=== PATIENT | female | born 1955 | race Caucasian/White ===

== ENCOUNTER → 2017-02-02 | Outpatient (CLI) | payer BC ==
--- NOTE | 2017-02-02 12:51 | RADIOLOGY REPORT (SQ) ---
EXAM DESCRIPTION: CT CHEST WITHOUT COMPLETED DATE/TIME: 02/02/2017 10:46 am REASON FOR STUDY: PULMONARY INFILTRATE R91.8 OTHER NONSPECIFIC ABNORMAL FINDING OF LUNG FIELD COMPARISON: 06/06/2015 TECHNIQUE: CT scan performed of the chest without intravenous contrast. Images reviewed with lung, soft tissue and bone windows. Reconstructed coronal and sagittal MPR images reviewed. All images st ored on PACS. All CT scanners at this facility use dose modulation, iterative reconstruction, and/or weight based d osing when appropriate to reduce radiation dose to as low as reasonably achievable (ALARA). [facility]: Dose Right [facility]: CareDose [facility]: Dose Right [facility]: Teradose 4D [facility]: [employer] RADIATION DOSE: 10.13 mGy. LIMITATIONS: No technical limitations. FINDINGS: LUNGS AND PLEURA: There are moderate centrilobular emphysematous changes predominantly in the right upper lobe. There is no pulmonary infiltrate or pleural effusion. No masses appreciated. The small nodule noted on the study from 2014 is not present. HILAR AND MEDIASTINAL STRUCTURES: There are some small calcified right hilar and subcarinal nodes. T here are scattered other mediastinal nodes that show no change. HEART AND VASCULAR STRUCTURES: No aneurysm. No pericardial effusion. UPPER ABDOMEN: No significant findings. Limited exam. THYROID AND OTHER SOFT TISSUES: No masses. No adenopathy. BONES: No significant finding. HARDWARE: None in the chest. OTHER: No other significant findings. IMPRESSION: There is mild pulmonary emphysema with no acute abnormality. TECHNICAL DOCUMENTATION: JOB ID: [id number] Quality ID # [id number]: Final reports with documentation of one or more dose reduction techniques (e.g., Au tomated exposure control, adjustment of the mA and/or kV according to patient size, use of iterative reconstruction technique) 2010 [employer]- All Rights Reserved
== END ==
LOC: RAD 10:32
PROVIDERS: ATTEND Internal Medicine Critical Care Medicine
DX: R91.8 Other nonspecific abnormal finding of lung field (principal)
CPT/HCPCS: 71250

== ENCOUNTER 2018-10-02 14:20 | Inpatient (IN) | payer BC ==
[2018-10-02] MEDS ORDERED: NORMAL SALINE 1000 ML 1,000 ML IV ONE (15:18)
[2018-10-02] MEDS ORDERED: ONDANSETRON HCL INJ/PF 4 MG/2 ML SDV IV ONE (15:18)
[2018-10-02] MEDS ORDERED: MORPHINE SULFATE 10 MG/ML INJ IV ONE (15:18)
--- NOTE | 2018-10-02 15:20 | ER Document Report ---
ED Medical Screen (RME) - General Chief Complaint: Flank Pain Stated Complaint: BACK PAIN/DIFFICULTY BREATHING Time Seen by Provider: 10/02/18 15:13 Primary Care Provider: MASOOD COLON PA [Primary Care Provider] - Follow up as needed Mode of Arrival: Ambulatory Information source: Patient Notes: 63-year-old female presents emergency department complaints of right flank pain that radiates into the right lower quadrant. No alleviating or exacerbating factors. No prior history of kidney stones. Has had an appendectomy. Patient is having associated nausea, vomiting, dysuria and chills. Denies any fever, diarrhea, constipation. I have greeted and performed a rapid initial assessment of this patient. A comprehensive ED assessment and evaluation of the patient, analysis of test results and completion of the medical decision making process will be conducted by additional ED providers. PHYSICAL EXAMINATION: GENERAL: Uncomfortable. HEAD: Atraumatic, normocephalic. EYES: Pupils equal round extraocular movements intact, conjunctiva are normal. ENT: Nares patent NECK: Normal range of motion LUNGS: No respiratory distress Musculoskeletal: Normal range of motion. R CVA tenderness. NEUROLOGICAL: Normal speech, PSYCH: Normal mood, normal affect. SKIN: Warm, Dry, normal turgor, no rashes or lesions noted. TRAVEL OUTSIDE OF THE [place] IN LAST 30 DAYS: No - Related Data Allergies/Adverse Reactions: brompheniramine maleate [From [employer]] Allergy (Severe, Verified 10/02/18 1 5:10) Mood change "higher than kite" x 2 days dextromethorphan HBr [From [employer]] Allergy (Severe, Verified 10/02/18 15:10) Mood change "higher than kite" x 2 days phenylpropanolamine HCl [From [employer]] Allergy (Severe, Verified 10/02/18 15:10) Mood change "higher than kite" x 2 days pseudoephedrine HCl [From [employer]] Allergy (Severe, Verified 10/02/18 15:10) Mood change "higher than kite" x 2 days Past Medical History - Social History Chew tobacco use (# tins/day): No Frequency of alcohol use: None Drug Abuse: None - Past Medical History Cardiac Medical History: Denies: Hx Coronary Artery Disease, Hx Heart Attack, Hx Hypertension Pulmonary Medical History: Reports: Hx Asthma, Hx Bronchitis, Hx COPD - Recently dx Denies: Hx Pneumonia Neurological Medical History: Denies: Hx Cerebrovascular Accident, Hx Seizures Endocrine Medical History: Reports: Hx Diabetes Mellitus Type 2 Renal/ Medical History: Denies: Hx Peritoneal Dialysis GI Medical History: Reports: Hx Gastroesophageal Reflux Disease, Hx Ulcer - Currently prepyloric ulcer on endoscopy 3 years ago Musculoskeltal Medical History: Reports Hx Arthritis - Hips, lower back Past Surgical History: Reports: Hx Appendectomy, Hx Pituitary Surgery - Pituitary adenoma removed in 2009, Hx Tonsillectomy - Immunizations Hx Diphtheria, Pertussis, Tetanus Vaccination: Yes Physical Exam - Vital signs Vitals: Temp Pulse Resp BP Pulse Ox 97.4 F 83 20 188/77 H 99 10/02/18 14:27 10/02/18 14:27 10/02/18 14:27 10/02/18 14:27 10/02/18 14:27 Course - Vital Signs Vital signs: Temp Pulse Resp BP Pulse Ox 97.4 F 83 20 188/77 H 99 10/02/18 14:27 10/02/18 14:27 10/02/18 14:27 10/02/18 14:27 10/02/18 14:27 Doctor's Discharge - Discharge Referrals: MASOOD COLON PA [Primary Care Provider] - Follow up as needed
[2018-10-02 15:52] LABS: ABSOLUTE BASOPHILS # (AUTO) 0.1 10^3/uL (0.0-0.2); ABSOLUTE EOSINOPHILS # (AUTO) 0.1 10^3/uL (0.0-0.6); ABSOLUTE LYMPHOCYTES (AUTO) 2.6 10^3/uL (0.5-4.7); ABSOLUTE MONOCYTES (AUTO) 0.6 10^3/uL (0.1-1.4); BASOPHILS % (AUTO) 0.7 % (0-2); EOSINOPHILS % (AUTO) 0.8 % (0-6); HEMATOCRIT 48.1 % (36.0-47.0); HEMOGLOBIN 16.4 g/dL (12.0-15.5); LYMPHOCYTES % (AUTO) 16.9 % (13-45); MEAN CORPUSCULAR VOLUME 85 fl (80-97); PLATELET COUNT 252 10^3/uL (150-450); RED BLOOD COUNT 5.65 10^6/uL (3.72-5.28); RED CELL DISTRIBUTION WIDTH 15.9 % (11.5-14.0); SEGMENTED NEUTROPHILS % (AUTO) 77.6 % (42-78); TOTAL CELLS COUNTED % (AUTO) 100 %; WHITE BLOOD COUNT 15.4 10^3/uL (4.0-10.5)
[2018-10-02] MEDS ORDERED: HYDROMORPHONE HCL INJ/PF 2 MG/ML AMPULE IV ONE (16:16)
[2018-10-02] MEDS ORDERED: KETOROLAC TROMETHAMINE INJ/PF 30 MG/1 ML SDV IV ONE (16:16)
[2018-10-02 16:17] LABS: APPEARANCE,URINE SLIGHTLY-CLOUDY; BILIRUBIN,URINE NEGATIVE (NEGATIVE); COLOR,URINE YELLOW; GLUCOSE, URINE NEGATIVE (NEGATIVE); KETONES,URINE NEGATIVE (NEGATIVE); LEUKOCYTE ESTERASE,URINE LARGE (NEGATIVE); NITRITE,URINE POSITIVE (NEGATIVE); PROTEIN,URINE NEGATIVE (NEGATIVE); URINE SPECIFIC GRAVITY 1.013
[2018-10-02 16:20] LABS: ALANINE AMINOTRANSFERASE 27 U/L (9-52); ALBUMIN 4.8 g/dL (3.5-5.0); ALKALINE PHOSPHATASE 173 U/L (38-126); ANION GAP 11 (5-19); ASPARTATE AMINO TRANSFERASE 18 U/L (14-36); BILIRUBIN,DIRECT 0.3 mg/dL (0.0-0.4); BILIRUBIN,TOTAL 0.5 mg/dL (0.2-1.3); BLOOD UREA NITROGEN 14 mg/dL (7-20); CARBON DIOXIDE 28 mmol/L (22-30); CHLORIDE 101 mmol/L (98-107); GLUCOSE 163 mg/dL (75-110); POTASSIUM 4.4 mmol/L (3.6-5.0); SODIUM 140.2 mmol/L (137-145); TOTAL PROTEIN 8.1 g/dL (6.3-8.2)
--- NOTE | 2018-10-02 17:26 | RADIOLOGY REPORT (SQ) ---
EXAM DESCRIPTION: CT ABD/PELVIS WITH IV ONLY COMPLETED DATE/TIME: 10/02/2018 5:04 pm REASON FOR STUDY: R flank pain COMPARISON: None. TECHNIQUE: CT scan of the abdomen and pelvis performed using helical scanning technique with dynamic intravenous contrast injection. No oral contrast. Images reviewed with lung, soft tissue, and bone w indows. Reconstructed coronal and sagittal MPR images reviewed. Delayed images for evaluation of the urinary system also acquired. All images stored on PACS. All CT scanners at this facility use dose modulation, iterative reconstruction, and/or weight based d osing when appropriate to reduce radiation dose to as low as reasonably achievable (ALARA). [facility]: Dose Right [facility]: CareDose [facility]: Dose Right [facility]: Teradose 4D [facility]: [employer] CONTRAST TYPE AND DOSE: contrast/concentration: Isovue 350.00 mg/ml; Total Contrast Delivered: 99.0 ml; Total Saline Delivered: 72.0 ml RENAL FUNCTION: GFR > 60. RADIATION DOSE: CT Rad equipment meets quality standard of care and radiation dose reduction techniq ues were employed. CTDIvol: 13.0 - 18.4 mGy. DLP: 1606 mGy-cm.. LIMITATIONS: None. FINDINGS: LOWER CHEST: Minimal basilar subsegmental atelectasis. LIVER: Normal size. No enhancing masses. No dilated ducts. SPLEEN: Normal size. No focal lesions. PANCREAS: No masses identified. No significant calcifications. No adjacent inflammation or peripancre atic fluid collections. Pancreatic duct not dilated. GALLBLADDER: No calcified stones. No inflammatory changes to suggest cholecystitis. ADRENAL GLANDS: No significant masses. RIGHT KIDNEY AND URETER: Small cysts identified. No solid masses identified. 4 mm calcified stone in the proximal right ureter with mild hydronephrosis-hydroureter. LEFT KIDNEY AND URETER: No cysts identified. No solid masses identified. 4 mm lower pole calcified s tone. No hydronephrosis or hydroureter. AORTA AND VESSELS: No aneurysm. No dissection. Renal arteries, SMA, celiac without significant stenos is. RETROPERITONEUM: No bulky retroperitoneal adenopathy. BOWEL AND PERITONEAL CAVITY: No obstruction or inflammatory changes. No free fluid. APPENDIX: Normal. PELVIS: No mass. No free fluid. Unremarkable bladder. ABDOMINAL WALL: No masses. No hernias. BONES: No acute findings. OTHER: No other significant finding. IMPRESSION: 4 mm calcified stone in the proximal right ureter with mild hydronephrosis-hydroureter. TECHNICAL DOCUMENTATION: JOB ID: [id number] Quality ID # [id number]: Final reports with documentation of one or more dose reduction techniques (e.g., Au tomated exposure control, adjustment of the mA and/or kV according to patient size, use of iterative reconstruction technique) 2010 [employer]- All Rights Reserved Reading location - IP/workstation name: [email or web address]
[2018-10-02] MEDS ORDERED: CEFTRIAXONE 1 GM/D5W RTU 1 GM/50 ML RTUPB IV ONE (17:46)
[2018-10-02] MEDS ORDERED: TAMSULOSIN HCL 0.4 MG CAP.SR.24H PO ONE (18:57)
--- NOTE | 2018-10-02 20:46 | ER Document Report ---
Entered by CHELSI DENIS SCRIBE 10/02/18 1146 Acting as scribe for:MONICA PORTILLO DO ED General - General Chief Complaint: Flank Pain Stated Complaint: BACK PAIN/DIFFICULTY BREATHING Time Seen by Provider: 10/02/18 15:13 Mode of Arrival: Ambulatory Information source: Patient Notes: Patient is a 63-year-old female with COPD, and type 2 diabetes presents to the emergency department complaining of right flank pain onset this morning. Patient states she noticed the pain when she woke up this morning but attributed it possibly sleeping incorrectly during the night. She states the pain has significantly worsened throughout the day and radiates into the right side of her lower abdomen. She states the pain is exacerbated with urinating. She denies a history of kidney stones but reports a history of multiple kidney infections as a child. Patient states she has had one vomiting episode upon arrival to the emergency department. Patient's PCP is DANIELA Gonzalez. TRAVEL OUTSIDE OF THE [place] IN LAST 30 DAYS: No - Related Data Allergies/Adverse Reactions: brompheniramine maleate [From [employer]] Allergy (Severe, Verified 10/02/18 15:10) Mood change "higher than kite" x 2 days dextromethorphan HBr [From [employer]] Allergy (Severe, Verified 10/02/18 15:10) Mood change "higher than kite" x 2 days phenylpropanolamine HCl [From [employer]] Allergy (Severe, Verified 10/02/18 15:10) Mood change "higher than kite" x 2 days pseudoephedrine HCl [From [employer]] Allergy (Severe, Verified 10/02/18 15:10) Mood change "higher than kite" x 2 days Past Medical History - General Information source: Patient - Social History Smoking Status: Current Every Day Smoker Chew tobacco use (# tins/day): No Frequency of alcohol use: None Drug Abuse: None Family History: CAD, Malignancy Patient has suicidal ideation: No Patient has homicidal ideation: No Pulmonary Medical History: Reports: Hx Asthma, Hx Bronchitis, Hx COPD - Recently dx Endocrine Medical History: Reports: Hx Diabetes Mellitus Type 2 GI Medical History: Reports: Hx Gastroesophageal Reflux Disease, Hx Ulcer - Currently prepyloric ulcer on endoscopy 3 years ago Musculoskeletal Medical History: Reports Hx Arthritis - Hips, lower back Past Surgical History: Reports: Hx Appendectomy, Hx Pituitary Surgery - Pituitary adenoma removed in 2010, Hx Tonsillectomy - Immunizations Hx Diphtheria, Pertussis, Tetanus Vaccination: Yes Review of Systems - Review of Systems Constitutional: No symptoms reported EENT: No symptoms reported Cardiovascular: No symptoms reported Respiratory: No symptoms reported Gastrointestinal: See HPI, Abdominal pain, Vomiting Genitourinary: See HPI, Flank pain Female Genitourinary: No symptoms reported Musculoskeletal: No symptoms reported Skin: No symptoms reported Hematologic/Lymphatic: No symptoms reported Neurological/Psychological: No symptoms reported -: Yes All other systems reviewed and negative Physical Exam - Vital signs Vitals: Temp Pulse Resp BP Pulse Ox 97.4 F 83 20 188/77 H 99 10/02/18 14:27 10/02/18 14:27 10/02/18 14:27 10/02/18 14:27 10/02/18 14:27 - Notes Notes: GENERAL: Alert, appears uncomfortable.. No acute distress. HEAD: Normocephalic, atraumatic. EYES: Pupils equal, round, and reactive to light. Extraocular movements intact. ENT: Oral mucosa moist, tongue midline. NECK: Full range of motion. Supple. Trachea midline. LUNGS: Crackles at the bases bilaterally.,No respiratory distress. HEART: Regular rate and rhythm. No murmurs, gallops, or rubs. ABDOMEN: Soft, non-tender. Non-distended. Bowel sounds present in all 4 quadrants. EXTREMITIES: Moves all 4 extremities spontaneously. 2/4 radial and dorsalis pedis pulses bilaterally. No edema. NEUROLOGICAL: Alert and oriented x3. Normal speech. PSYCH: Normal affect, normal mood. SKIN: Warm, dry, normal turgor. No rashes or lesions noted. BACK: Right CVA tenderness to percussion. Course - Re-evaluation Re-evalutation: 10/02/18 20:44 CBC shows leukocytosis of 15.4, some hemoconcentration with hemoglobin 16.4, chemistries grossly unremarkable with the exception of a mildly elevated glucose of 163, urinalysis shows large blood, large leukocyte esterase, positive nitrites, 50 WBCs, 39 RBCs and 3+ bacteria. This is been sent for culture and treated with Rocephin. CT scan of the abdomen and pelvis shows a 4 mm calcified stone in the proximal right ureter with mild hydronephrosis and hydroureter. Given the fact that the patient has an infected, mildly obstructing stone I did consult urology at [facility], discussed the patient with Siomara Beltran the PA for the urology service. She stated that as the patient has no signs of sepsis, has not been febrile, hypotensive, tachycardic and is no longer in any pain that this patient could be watched here with IV antibiotics, they would not stent this patient emergently at this time. If at any point she develops signs of sepsis such as hypotension, fever or tachycardia she should be transferred there emergently to go directly to the OR. I then discussed the patient with Dr. Perdue who agrees to accept the patient to his service. - Vital Signs Vital signs: Temp Pulse Resp BP Pulse Ox 98.2 F 88 20 135/69 H 93 10/02/18 21:01 10/02/18 16:20 10/02/18 22:01 10/02/18 22:01 10/02/18 22:01 - Laboratory Result Diagrams: 10/02/18 15:30 10/02/18 15:30 Laboratory results interpreted by me: 10/02/18 10/02/18 10/02/18 15:25 15:30 15:30 WBC 15.4 H RBC 5.65 H Hgb 16.4 H Hct 48.1 H RDW 15.9 H Absolute Neutrophils 12.0 H Glucose 163 H Alkaline Phosphatase 173 H Urine Blood LARGE H Urine Nitrite POSITIVE H Urine Urobilinogen 2.0 H Ur Leukocyte Esterase LARGE H Discharge - Discharge Clinical Impression: Ureteral stone with hydronephrosis, Pyelonephritis, acute Condition: Fair Disposition: ADMITTED INPATIENT Admitting Provider: Darci Perdue Unit Admitted: Telemetry Scribe Attestation: 10/02/18 23:59 I personally performed the services described in the documentation, reviewed and edited the documentation which was dictated to the scribe in my presence, and it accurately records my words and actions. I personally performed the services described in the documentation, reviewed and edited the documentation which was dictated to the scribe in my presence, and it accurately records my words and actions.
[2018-10-02] MEDS ORDERED: ONDANSETRON HCL INJ/PF 4 MG/2 ML SDV IV PRN (22:33)
[2018-10-02] MEDS ORDERED: MAGNESIUM HYDROXIDE SUSP 30 ML UDCUP PO PRN (22:33)
[2018-10-02] MEDS ORDERED: MAG HYDROX/AL HYDROX/SIMETH SUSP 30 ML UDCUP PO PRN (22:33)
[2018-10-02] MEDS ORDERED: ONDANSETRON 4 MG TAB.RAPDIS PO PRN (22:33)
[2018-10-02] MEDS ORDERED: MORPHINE SULFATE 10 MG/ML INJ IV PRN ×3 (22:44)
[2018-10-02] MEDS ORDERED: INSULIN REG, HUMAN 100 UNIT/ML 3 ML VIAL (PYX) SUBCUT PRN (22:48)
[2018-10-02] MEDS ORDERED: DEXTROSE 50%-WATER 25 GM/50 ML DISP.SYRIN IV PRN ×2 (22:48)
[2018-10-02] MEDS ORDERED: GLUCAGON,HUMAN RECOMB 1 MG INJ IM PRN (22:48)
[2018-10-02] MEDS ORDERED: DEXTROSE 40% GEL 15 GM TUBE PO PRN ×2 (22:48)
[2018-10-02] MEDS ORDERED: MEROPENEM 1 GM VIAL IV PRN ×2 (23:30→23:31)
[2018-10-03] MEDS ORDERED: ALBUTEROL SULFATE 0.083% NEB 2.5 MG/3 ML AMPUL NEB PRN (01:11)
--- NOTE | 2018-10-03 01:33 | PDOC H&P ---
History of Present Illness Admission Date/PCP: 10/02/18 20:51 CARROLL LIANG PA-C Patient complains of: Flank pain History of Present Illness: KAREEM RIOJAS is a 63 year old female who presented to the emergency room with extremely severe right flank pain of 4 hours duration. Patient admits that she began having some mild discomfort in her right flank on the evening prior to admission and this was still present on the morning of admission but she then suddenly developed increasing flank pain and over up course of about 4 hours it became unbearably severe. The pain began in the right posterior costovertebral angle area and gradually expanded in the area around her right side down all the way into her right groin. She describes the pain is a severe cramping pressure of unbearable intensity. The pain is increased with any movement and the active trying to urinate. She has not identified any ameliorating factors for the pain. She denies prior similar symptoms. Pain is been associated with nausea and vomiting as well as subjective chills without fever. In the emergency room she was noted to be in severe discomfort and was found to have a 4 millimeter ureterolith in her right distal ureter. Urology at [facility] was contacted and agrees that they will take the patient immediately if she develops a fever, hypotension or any evidence of sepsis with the intention of taking the patient directly to the operating room and placing a stent. Otherwise urology recommends supportive care with IV fluids, antiemetics, antibi otics and pain management. Patient is thus admitted to the hospital for further evaluation and treatment. Past Medical History Cardiac Medical History: Denies: Coronary Artery Disease, Myocardial Infarction, Hypertension Pulmonary Medical History: Reports: Asthma, Bronchitis, Chronic Obstructive Pulmonary Disease (COPD) - Recently dx Denies: Pneumonia, Respiratory Failure, Tuberculosis EENT Medical History: Denies: Cataracts, Nose - Epistaxis Neurological Medical History: Denies: Multiple Sclerosis, Seizures Endocrine Medical History: Reports: Diabetes Mellitus Type 2, Other - Pituitary tumor Denies: Hyperthyroidism, Hypothyroidism Renal/ Medical History: Reports: Other - Multiple urinary tract infections as a child Denies: Chronic Kidney Disease, Nephrolithiasis Malignancy Medical History: Reports: None GI Medical History: Reports: Gastroesophageal Reflux Disease Denies: Cirrhosis, Crohn's Disease, Hepatitis, Ulcerative Colitis Musculoskeltal Medical History: Reports: Arthritis - Hips, lower back Denies: Gout Skin Medical History: Denies: Eczema, Psoriasis Psychiatric Medical History: Reports: Tobacco Dependency Denies: Alcohol Dependency, Substance Abuse Traumatic Medical History: Reports: None Hematology: Denies: Anemia, Bleeding Tendencies Infectious Medical History: Reports: None Past Surgical History Past Surgical History: Reports: Appendectomy, Tonsillectomy, Tubal Ligation, Other - Excision of benign pituitary tumor Social History Information Source: Patient Lives with: Spouse/Significant other Smoking Status: Current Every Day Smoker Frequency of Alcohol Use: None Hx Recreational Drug Use: No Drugs: None Hx Prescription Drug Abuse: No - Advance Directive Resuscitation Status: Full Code Surrogate healthcare decision maker:: Her daughter Taisha Family History Family History: CAD, DM Parental Family History Reviewed: Yes Children Family History Reviewed: No Sibling(s) Family History Reviewed.: Yes Medication/Allergy Home Medications: Hydrocodone/Acetaminophen [Vicodin 5-300 mg Tablet] 1 each PO ASDIR PRN #15 tablet 07/30/13 Ondansetron [Zofran Odt 4 mg Tablet] 1 - 2 tab PO Q4H #10 tab.rapdis 07/30/13 Albuterol Sulfate [Albuterol Sulfate Hfa] 2 puff IH Q4H PRN 10/12/13 Calcium Carbonate [Tums Smoothies] 900 - 1,200 mg PO TID PRN 10/12/13 Metformin HCl [Glucophage 500 mg Tablet] 500 mg PO BID 10/12/13 Omeprazole 20 mg PO BID 10/12/13 Ranitidine HCl 150 mg PO BID 10/12/13 [address] [place] [Spiriva Handihaler 18 mcg/dose (30 Dose)] 1 puff IH DAILY 10/12/13 Vitamin D 50,000 mg PO SA 10/12/13 Allergies/Adverse Reactions: brompheniramine maleate [From Dimetapp] Allergy (Severe, Verified 10/02/18 15:10) Mood change "higher than kite" x 2 days dextromethorphan HBr [From Dimetapp] Allergy (Severe, Verified 10/02/18 15:10) Mood change "higher than kite" x 2 days phenylpropanolamine HCl [From Dimetapp] Allergy (Severe, Verified 10/02/18 15:10) Mood change "higher than kite" x 2 days pseudoephedrine HCl [From Dimetapp] Allergy (Severe, Verified 10/02/18 15:10) Mood change "higher than kite" x 2 days Review of Systems Constitutional: ABSENT: chills, fever(s) Eyes: ABSENT: visual disturbances, other - Eye pain Ears: ABSENT: hearing changes, other - Ear pain Nose, Mouth, and Throat: ABSENT: mouth pain, sore throat Cardiovascular: ABSENT: chest pain, palpitations Respiratory: ABSENT: cough, dyspnea Gastrointestinal: PRESENT: as per HPI, abdominal pain - Right flank pain, nausea, vomiting. ABSENT: constipation, diarrhea Genitourinary: ABSENT: dysuria, hematuria Musculoskeletal: PRESENT: back pain - Chronic arthritis, other - Arthritis in hips. ABSENT: joint swelling Integumentary: ABSENT: pruritus, rash Neurological: ABSENT: confusion, convulsions, memory loss Psychiatric: ABSENT: anxiety, depression Endocrine: ABSENT: cold intolerance, heat intolerance Hematologic/Lymphatic: ABSENT: easy bleeding, easy bruising Physical Exam Vital Signs: Temp Pulse Resp BP Pulse Ox 98.2 F 88 20 135/69 H 93 10/02/18 21:01 10/02/18 16:20 10/02/18 22:01 10/02/18 22:01 10/02/18 22:01 Intake & Output 09/30/18 10/01/18 10/02/18 23:59 23:59 23:59 Intake Total 1000 Balance 1000 Weight 87.5 kg General appearance: PRESENT: no acute distress, cooperative, obese Head exam: PRESENT: atraumatic, normocephalic Eye exam: PRESENT: conjunctiva pink, EOMI. ABSENT: scleral icterus Ear exam: PRESENT: normal external ear exam. ABSENT: bleeding, drainage Mouth exam: PRESENT: dry mucosa, neck supple Neck exam: ABSENT: thyromegaly, tracheal deviation Respiratory exam: PRESENT: clear to auscultation charles, symmetrical, unlabored Cardiovascular exam: PRESENT: RRR. ABSENT: clicks, gallop, rubs Pulses: PRESENT: normal radial pulses, normal dorsalis pedis pul Vascular exam: PRESENT: normal capillary refill. ABSENT: pallor GI/Abdominal exam: PRESENT: normal bowel sounds, soft, tenderness - Tenderness noted to palpation throughout the right flank (including groin and right costovertebral angle). Rectal exam: PRESENT: deferred Extremities exam: ABSENT: joint swelling, pedal edema Musculoskeletal exam: ABSENT: deformity, dislocation Neurological exam: PRESENT: alert, oriented to person, oriented to place, oriented to time, oriented to situation, CN II-XII grossly intact. ABSENT: motor sensory deficit Psychiatric exam: PRESENT: appropriate affect, normal mood Skin exam: PRESENT: dry, intact, warm. ABSENT: jaundice, rash, urticaria Results Laboratory Results: 10/02/18 15:30 10/02/18 15:30 10/02/18 10/02/18 10/02/18 15:25 15:30 15:30 WBC 15.4 H RBC 5.65 H Hgb 16.4 H Hct 48.1 H MCV 85 MCH 29.0 MCHC 34.0 RDW 15.9 H Plt Count 252 Seg Neutrophils % 77.6 Lymphocytes % 16.9 Monocytes % 4.0 Eosinophils % 0.8 Basophils % 0.7 Absolute Neutrophils 12.0 H Absolute Lymphocytes 2.6 Absolute Monocytes 0.6 Absolute Eosinophils 0.1 Absolute Basophils 0.1 Sodium 140.2 Potassium 4.4 Chloride 101 Carbon Dioxide 28 Anion Gap 11 BUN 14 Creatinine 0.86 Est GFR ( Amer) > 60 Est GFR (Non-Af Amer) > 60 Glucose 163 H Calcium 10.0 Total Bilirubin 0.5 AST 18 ALT 27 Alkaline Phosphatase 173 H Total Protein 8.1 Albumin 4.8 Urine Color YELLOW Urine Appearance SLIGHTLY-CLOUDY Urine pH 6.0 Ur Specific [place] 1.013 Urine Protein NEGATIVE Urine Glucose (UA) NEGATIVE Urine Ketones NEGATIVE Urine Blood LARGE H Urine Nitrite POSITIVE H Ur Leukocyte Esterase LARGE H Urine WBC (Auto) 50 Urine RBC (Auto) 39 Impressions: Abdomen/Pelvis CT 10/02/18 15:17 IMPRESSION: 4 mm calcified stone in the proximal right ureter with mild hydronephrosis-hydroureter. Assessment & Plan - Diagnosis (1) Right nephrolithiasis Is this a current diagnosis for this admission?: Yes Plan: Patient will be admitted for IV fluids and pain control. Should she develop fever or signs of sepsis or increasing obstruction she will be transferred to [facility] were the urologist substation manager has already agreed to accept her directly and take her to surgery. (2) Pyelonephritis, acute Is this a current diagnosis for this admission?: Yes Plan: Patient be treated with broad-spectrum antibiotics while awaiting the urine culture and blood culture results. Pain will be managed utilizing a sliding dose morphine 3-7.5 mg IV every 2 hours as needed for pain. (3) Diabetes mellitus type 2 in obese Is this a current diagnosis for this admission?: Yes Plan: Patient will be maintained on her usual diabetic medications. Hemoglobin A1c will be obtained to evaluate efficacy of therapy and sliding scale insulin will be instituted before meals and at bedtime to cover hyperglycemia during her hospital stay. (4) GERD (gastroesophageal reflux disease) Qualifiers: Esophagitis presence: with esophagitis Qualified Code(s): K21.0 - Gastro- esophageal reflux disease with esophagitis Is this a current diagnosis for this admission?: Yes Plan: Patient will be placed on a gastroesophageal reflux regimen utilizing Reglan, famotidine and sucralfate. - Time Time Spent: 30 to 50 Minutes Critical Time spent with patient: Less than 15 minutes Smoking Cessation Education: 3 to 10 minutes Medications reviewed and adjusted accordingly: Yes - Inpatient Certification Based on my medical assessment, after consideration of the patient's gaurav rbidities, presenting symptoms, or acuity I expect that the services needed warrant INPATIENT care.: Yes I certify that my determination is in accordance with my understanding of Medicare's requirements for reasonable and necessary INPATIENT services [42 CFR 412.3e].: Yes Medical Necessity: Need Close Monitoring Due to Risk of Patient Decompensation, Need For IV Fluids, Need for Pain Control, Need for IV Antibiotics, Risk of Complication if Not Cared For in Hospital
[2018-10-03] MEDS ORDERED: MEROPENEM 1 GM in NORMAL SALINE 50 ML IV SCH ×2 (02:00→06:00)
[2018-10-03] MEDS ORDERED: MEROPENEM 1 GM VIAL ONE (02:25)
[2018-10-03 05:06] LABS: ABSOLUTE BASOPHILS # (AUTO) 0.1 10^3/uL (0.0-0.2); ABSOLUTE EOSINOPHILS # (AUTO) 0.1 10^3/uL (0.0-0.6); ABSOLUTE LYMPHOCYTES (AUTO) 2.4 10^3/uL (0.5-4.7); ABSOLUTE MONOCYTES (AUTO) 0.8 10^3/uL (0.1-1.4); BASOPHILS % (AUTO) 0.6 % (0-2); EOSINOPHILS % (AUTO) 0.8 % (0-6); HEMATOCRIT 41.5 % (36.0-47.0); LYMPHOCYTES % (AUTO) 19.2 % (13-45); MEAN CORPUSCULAR HEMOGLOBIN 29.1 pg (27.0-33.4); MEAN CORPUSCULAR HGB CONC 34.2 g/dL (32.0-36.0); MEAN CORPUSCULAR VOLUME 85 fl (80-97); MONOCYTES % (AUTO) 6.1 % (3-13); PLATELET COUNT 189 10^3/uL (150-450); RED BLOOD COUNT 4.88 10^6/uL (3.72-5.28); RED CELL DISTRIBUTION WIDTH 15.6 % (11.5-14.0); SEGMENTED NEUTROPHILS % (AUTO) 73.3 % (42-78); TOTAL CELLS COUNTED % (AUTO) 100 %; WHITE BLOOD COUNT 12.3 10^3/uL (4.0-10.5)
[2018-10-03 05:09] LABS: HEMOGLOBIN 14.2 g/dL (12.0-15.5)
[2018-10-03 05:27] LABS: ANION GAP 6 (5-19); BLOOD UREA NITROGEN 15 mg/dL (7-20); CALCIUM 9.3 mg/dL (8.4-10.2); CARBON DIOXIDE 29 mmol/L (22-30); CHLORIDE 105 mmol/L (98-107); GLUCOSE 171 mg/dL (75-110); POTASSIUM 4.4 mmol/L (3.6-5.0); SODIUM 140.1 mmol/L (137-145)
[2018-10-03 05:40] LABS: FREE T3 2.79 pg/mL (2.77-5.27); FREE T4 (FREE THYROXINE) 0.78 ng/dL (0.78-2.19)
[2018-10-03] MEDS: HEPARIN SOD (PORCINE) 5,000 UNIT/ML 1 ML SYRINGE SUBCUT SCH ×3 (05:43→22:16)
[2018-10-03 05:54] LABS: THYROID STIMULATING HORMONE 2.11 uIU/mL (0.47-4.68)
[2018-10-03] MEDS: FAMOTIDINE 20 MG TABLET PO SCH ×4 (08:28→22:18)
[2018-10-03] MEDS: SUCRALFATE SUSP 1 GM/10 ML UDCUP PO SCH ×4 (08:29→22:16)
[2018-10-03] MEDS: ACETAMINOPHEN 325 MG TABLET PO PRN (08:41)
[2018-10-03] MEDS: BUDESONIDE NEB 0.5 MG/2 ML AMPUL NEB SCH (09:02)
[2018-10-03] MEDS: IPRATROPIUM BROMIDE 0.02% NEB 0.5 MG/2.5 ML AMPUL NEB SCH ×2 (09:02→15:50)
[2018-10-03] MEDS: LEVALBUTEROL HCL NEB 1.25 MG/3 ML AMPUL NEB SCH ×2 (09:02→15:50)
[2018-10-03] MEDS: NICOTINE 21 MG/24 HR PATCH.TD24 TD PRN (09:03)
[2018-10-03] MEDS: DOCUSATE SODIUM 100 MG CAPSULE PO SCH ×2 (09:03→17:16)
[2018-10-03] MEDS ORDERED: METFORMIN HCL 500 MG TABLET PO SCH (10:00)
[2018-10-03] MEDS ORDERED: FAMOTIDINE 20 MG TABLET PO SCH (10:00)
[2018-10-03] MEDS: METOCLOPRAMIDE HCL 10 MG TABLET PO SCH ×4 (10:31→22:18)
[2018-10-03] MEDS: MEROPENEM 1 GM in NORMAL SALINE 50 ML IV SCH ×2 (10:32→17:16)
[2018-10-03] MEDS ORDERED: DEXTROSE 40% GEL 15 GM TUBE PO PRN ×2 (11:35)
[2018-10-03] MEDS ORDERED: GLUCAGON,HUMAN RECOMB 1 MG INJ IM PRN (11:35)
[2018-10-03] MEDS ORDERED: DEXTROSE 50%-WATER 25 GM/50 ML DISP.SYRIN IV PRN ×2 (11:35)
--- NOTE | 2018-10-03 11:51 | PDOC PROGRESS REPORT ---
Subjective Progress Note for:: 10/03/18 Subjective:: 10/03/[id number]-old female admitted with right flank pain pain was intense when she came to the emergency room associated nausea and vomitings. CTA of the chest was done found to have a right kidney stone 4 mm in size located in the right distal ureter in association with mild hydronephrosis. Call was placed to [facility] for advise s if the patient becomes septic they going to take her directly to the operating room and place a stent. Otherwise urologist recommended supportive care with IV fluids antibiotics and pain management. Presently patient is saying she is feeling better compared to yesterday. Less nauseated able to eat a little bit of breakfast. Pain is better compared to yesterday according to her. Blood pressures are stable. Patient is afebrile. No acute events since the admission. Reason For Visit: ACUTE INFECTED NEPHROLITHIASIS Physical Exam Vital Signs: Temp Pulse Resp BP Pulse Ox 97.5 F 89 18 142/79 H 99 10/03/18 08:09 10/03/18 09:02 10/03/18 09:02 10/03/18 08:09 10/03/18 09:02 Intake & Output 10/02/18 10/03/18 10/04/18 06:59 06:59 06:59 Intake Total 1400 Output Total 400 Balance 1000 Weight 90 kg General appearance: PRESENT: no acute distress Head exam: PRESENT: atraumatic Eye exam: PRESENT: PERRLA Neck exam: ABSENT: carotid bruit, JVD, lymphadenopathy, thyromegaly Respiratory exam: PRESENT: clear to auscultation charles. ABSENT: rales, rhonchi, wheezes Cardiovascular exam: PRESENT: RRR. ABSENT: diastolic murmur, rubs, systolic murmur GI/Abdominal exam: PRESENT: other - Abdomen was soft obese nontender no organomegaly. Gentle palpation of the right costophrenic angle patient complains of mild pain. She is saying pain is much better compared to yesterday. Extremities exam: PRESENT: full ROM. ABSENT: calf tenderness, clubbing, pedal edema Neurological exam: PRESENT: alert, awake, oriented to person, oriented to place, oriented to time, oriented to situation, CN II-XII grossly intact. ABSENT: motor sensory deficit Psychiatric exam: PRESENT: appropriate affect, normal mood. ABSENT: homicidal ideation, suicidal ideation Results Laboratory Results: 10/03/18 04:22 10/03/18 04:22 10/02/18 10/02/18 10/02/18 15:25 15:30 15:30 WBC 15.4 H RBC 5.65 H Hgb 16.4 H Hct 48.1 H MCV 85 MCH 29.0 MCHC 34.0 RDW 15.9 H Plt Count 252 Seg Neutrophils % 77.6 Lymphocytes % 16.9 Monocytes % 4.0 Eosinophils % 0.8 Basophils % 0.7 Absolute Neutrophils 12.0 H Absolute Lymphocytes 2.6 Absolute Monocytes 0.6 Absolute Eosinophils 0.1 Absolute Basophils 0.1 Sodium 140.2 Potassium 4.4 Chloride 101 Carbon Dioxide 28 Anion Gap 11 BUN 14 Creatinine 0.86 Est GFR ( Amer) > 60 Est GFR (Non-Af Amer) > 60 Glucose 163 H Calcium 10.0 Magnesium Total Bilirubin 0.5 AST 18 ALT 27 Alkaline Phosphatase 173 H Total Protein 8.1 Albumin 4.8 TSH Free T4 Free T3 pg/mL Urine Color YELLOW Urine Appearance SLIGHTLY-CLOUDY Urine pH 6.0 Ur Specific [place] 1.013 Urine Protein NEGATIVE Urine Glucose (UA) NEGATIVE Urine Ketones NEGATIVE Urine Blood LARGE H Urine Nitrite POSITIVE H Ur Leukocyte Esterase LARGE H Urine WBC (Auto) 50 Urine RBC (Auto) 39 10/03/18 10/03/18 10/03/18 04:22 04:22 04:22 WBC 12.3 H RBC 4.88 Hgb 14.2 D Hct 41.5 MCV 85 MCH 29.1 MCHC 34.2 RDW 15.6 H Plt Count 189 Seg Neutrophils % 73.3 Lymphocytes % 19.2 Monocytes % 6.1 Eosinophils % 0.8 Basophils % 0.6 Absolute Neutrophils 9.0 H Absolute Lymphocytes 2.4 Absolute Monocytes 0.8 Absolute Eosinophils 0.1 Absolute Basophils 0.1 Sodium 140.1 Potassium 4.4 Chloride 105 Carbon Dioxide 29 Anion Gap 6 BUN 15 Creatinine 0.89 Est GFR ( Amer) > 60 Est GFR (Non-Af Amer) > 60 Glucose 171 H Calcium 9.3 Magnesium 2.0 Total Bilirubin AST ALT Alkaline Phosphatase Total Protein Albumin TSH 2.11 Free T4 0.78 Free T3 pg/mL 2.79 Urine Color Urine Appearance Urine pH Ur Specific [place] Urine Protein Urine Glucose (UA) Urine Ketones Urine Blood Urine Nitrite Ur Leukocyte Esterase Urine WBC (Auto) Urine RBC (Auto) Impressions: Abdomen/Pelvis CT 10/02/18 15:17 IMPRESSION: 4 mm calcified stone in the proximal right ureter with mild hydronephrosis-hydroureter. Assessment & Plan - Diagnosis (1) Right nephrolithiasis Is this a current diagnosis for this admission?: Yes Plan: Patient will be admitted for IV fluids and pain control. Should she develop fever or signs of sepsis or increasing obstruction she will be transferred to [facility] were the urologist gas distribution plant operator has already agreed to accept her directly and take her to surgery. 10/03/2018-patient was admitted with right-sided 4 mm stone in the right upper ureter. Presently she is on IV Ringer lactate, IV meropenem. She is also receiving IV pain medications. So far blood pressures are stable patient is afebrile. If she develops fever or signs of sepsis or increasing obstruction she will be transferred to [facility]. (2) Pyelonephritis, acute Is this a current diagnosis for this admission?: Yes Plan: Patient be treated with broad-spectrum antibiotics while awaiting the urine culture and blood culture results. Pain will be managed utilizing a sliding dose morphine 3-7.5 mg IV every 2 hours as needed for pain. 10/03/2018-blood cultures and urine cultures are pending. Patient is on morphine sliding scale for pain management. Patient states pain is less compared to yesterday. (3) Diabetes mellitus type 2 in obese Is this a current diagnosis for this admission?: Yes Plan: Patient will be maintained on her usual diabetic medications. Hemoglobin A1c will be obtained to evaluate efficacy of therapy and sliding scale insulin will be instituted before meals and at bedtime to cover hyperglycemia during her hospital stay. 10/03/2018 hemoglobin A1c came back 7.6. Patient on insulin sliding scale. Metformin is on hold. Dietary consult is going to be requested. Diet exercise lifestyle modifications are discussed with the patient. (4) GERD (gastroesophageal reflux disease) Qualifiers: Esophagitis presence: with esophagitis Qualified Code(s): K21.0 - Gastro-esophageal reflux disease with esophagitis Is this a current diagnosis for this admission?: Yes Plan: 10/03/2018-patient has history of gastric further reflux disease she was on famotidine sucralfate and Reglan. Plan is to continue the present management. - Time Time Spent with patient: 15-24 minutes Medications reviewed and adjusted accordingly: Yes Anticipated discharge: Home
[2018-10-03] MEDS ORDERED: INSULIN LISPRO 100 UNIT/ML 3 ML VIAL SUBCUT ONE (14:15)
[2018-10-03] MEDS: RINGERS SOLUTION,LACTATED 1,000 ML IV PRN (16:47)
[2018-10-03] MEDS: TAMSULOSIN HCL 0.4 MG CAP.SR.24H PO SCH (17:16)
[2018-10-03] MEDS: INSULIN LISPRO 100 UNIT/ML 3 ML VIAL SUBCUT SCH ×2 (17:58→22:17)
[2018-10-03] MEDS ORDERED: KETOROLAC TROMETHAMINE INJ/PF 30 MG/1 ML SDV ONE (18:11)
[2018-10-03] MEDS ORDERED: KETOROLAC TROMETHAMINE INJ/PF 30 MG/1 ML SDV IV PRN (20:00)
[2018-10-04] MEDS: LEVALBUTEROL HCL NEB 1.25 MG/3 ML AMPUL NEB SCH ×3 (00:13→16:24)
[2018-10-04] MEDS: IPRATROPIUM BROMIDE 0.02% NEB 0.5 MG/2.5 ML AMPUL NEB SCH ×3 (00:13→16:24)
[2018-10-04] MEDS: BUDESONIDE NEB 0.5 MG/2 ML AMPUL NEB SCH ×3 (00:13→20:40)
[2018-10-04] MEDS: RINGERS SOLUTION,LACTATED 1,000 ML IV PRN ×2 (00:15→10:42)
[2018-10-04] MEDS: MEROPENEM 1 GM in NORMAL SALINE 50 ML IV SCH ×3 (03:02→17:12)
[2018-10-04] MEDS ORDERED: METOPROLOL TARTRATE PF/INJ 5 MG/5 ML SDV IV ONE ×3 (03:38→04:00)
[2018-10-04] MEDS ORDERED: METOPROLOL TARTRATE PF/INJ 5 MG/5 ML SDV IV PRN (03:59)
[2018-10-04 04:03] LABS: ABSOLUTE BASOPHILS # (AUTO) 0.1 10^3/uL (0.0-0.2); ABSOLUTE EOSINOPHILS # (AUTO) 0.1 10^3/uL (0.0-0.6); ABSOLUTE LYMPHOCYTES (AUTO) 2.3 10^3/uL (0.5-4.7); ABSOLUTE MONOCYTES (AUTO) 0.4 10^3/uL (0.1-1.4); ABSOLUTE NEUT (AUTO) 4.7 10^3/uL (1.7-8.2); BASOPHILS % (AUTO) 1.2 % (0-2); EOSINOPHILS % (AUTO) 1.3 % (0-6); HEMATOCRIT 43.1 % (36.0-47.0); HEMOGLOBIN 14.8 g/dL (12.0-15.5); LYMPHOCYTES % (AUTO) 29.9 % (13-45); MEAN CORPUSCULAR HEMOGLOBIN 29.2 pg (27.0-33.4); MEAN CORPUSCULAR HGB CONC 34.3 g/dL (32.0-36.0); MEAN CORPUSCULAR VOLUME 85 fl (80-97); MONOCYTES % (AUTO) 5.2 % (3-13); PLATELET COUNT 179 10^3/uL (150-450); RED BLOOD COUNT 5.06 10^6/uL (3.72-5.28); RED CELL DISTRIBUTION WIDTH 15.7 % (11.5-14.0); SEGMENTED NEUTROPHILS % (AUTO) 62.4 % (42-78); TOTAL CELLS COUNTED % (AUTO) 100 %; WHITE BLOOD COUNT 7.6 10^3/uL (4.0-10.5)
[2018-10-04 04:34] LABS: ALANINE AMINOTRANSFERASE 25 U/L (9-52); ALBUMIN 4.2 g/dL (3.5-5.0); ALKALINE PHOSPHATASE 149 U/L (38-126); ANION GAP 6 (5-19); ASPARTATE AMINO TRANSFERASE 20 U/L (14-36); BILIRUBIN,DIRECT 0.3 mg/dL (0.0-0.4); BILIRUBIN,TOTAL 0.4 mg/dL (0.2-1.3); BLOOD UREA NITROGEN 10 mg/dL (7-20); CALCIUM 9.7 mg/dL (8.4-10.2); CARBON DIOXIDE 31 mmol/L (22-30); CHLORIDE 111 mmol/L (98-107); GLUCOSE 215 mg/dL (75-110); POTASSIUM 3.9 mmol/L (3.6-5.0); SODIUM 148.4 mmol/L (137-145); TOTAL PROTEIN 7.5 g/dL (6.3-8.2)
[2018-10-04 04:43] LABS: CREATINE KINASE MB 0.34 ng/mL (<4.55)
[2018-10-04 04:45] LABS: TROPONIN I < 0.012 ng/mL
[2018-10-04] MEDS: HEPARIN SOD (PORCINE) 5,000 UNIT/ML 1 ML SYRINGE SUBCUT SCH ×3 (05:12→22:07)
[2018-10-04] MEDS ORDERED: DILTIAZEM HCL INJ 25 MG/5 ML VIAL IV ONE (05:30)
--- NOTE | 2018-10-04 06:56 | EKG REPORT ---
SEVERITY:- ABNORMAL ECG - ATRIAL FIBRILLATION : Confirmed by: Anna Valencia 04-Oct-2018 06:56:29
[2018-10-04] MEDS: INSULIN LISPRO 100 UNIT/ML 3 ML VIAL SUBCUT SCH ×4 (08:15→22:08)
[2018-10-04] MEDS: FAMOTIDINE 20 MG TABLET PO SCH ×4 (09:12→22:08)
[2018-10-04] MEDS: METOCLOPRAMIDE HCL 10 MG TABLET PO SCH ×4 (09:12→22:08)
[2018-10-04] MEDS: DOCUSATE SODIUM 100 MG CAPSULE PO SCH ×2 (09:12→17:12)
[2018-10-04] MEDS: SUCRALFATE SUSP 1 GM/10 ML UDCUP PO SCH ×4 (09:13→22:07)
[2018-10-04] MEDS: DILTIAZEM HCL 90 MG TABLET PO SCH ×3 (09:50→22:07)
[2018-10-04 11:53] LABS: CREATINE KINASE MB 0.55 ng/mL (<4.55)
[2018-10-04 11:59] LABS: TROPONIN I < 0.012 ng/mL
[2018-10-04 16:25] LABS: CREATINE KINASE MB 0.43 ng/mL (<4.55)
[2018-10-04 16:31] LABS: TROPONIN I < 0.012 ng/mL
[2018-10-04] MEDS: TAMSULOSIN HCL 0.4 MG CAP.SR.24H PO SCH (17:12)
[2018-10-04] MEDS: NICOTINE 21 MG/24 HR PATCH.TD24 TD PRN (18:51)
--- NOTE | 2018-10-04 19:41 | XCELERA REPORT ---
[address] [address] Transthoracic Echocardiogram Report Name: KAREEM RIOJAS Age: 63 yrs Gender: Female : 1955 Patient Status: Inpatient Patient Location: [address] [place], [place] [address] Study Date: 10/04/2018 10:24 AM Height: 66 in Weight: 199 lb BSA: 2.0 m2 Procedure: A two-dimensional transthoracic echocardiogram with color flow Doppler was performed. The study was technically difficult with many images being suboptimal in quality. Reason For Study: new onset afib History: ATRIAL FIBRILLATION. Ordering Physician: SYLVIA CULLEN Performed By: Apryl Miguel Interpretation Summary The left ventricle is normal in size. There is normal left ventricular wall thickness. LV EF is > than 65% The left ventricular ejection fraction is within normal limits. Doppler measurements suggest normal left ventricular diastolic function The left ventricular wall motion is normal. There is no thrombus. The right ventricle is grossly normal size. The right ventricle is not well visualized secondary to technical limitations The right atrium is normal. The left atrial size is normal. There is no evidence of mitral valve prolapse. There is no vegetation seen on the mitral valve. There is no mitral valve stenosis. There is a trace amount of mitral regurgitation There is no aortic valvular vegetation. There is no aortic valve stenosis There is no LVOT obstruction. No aortic regurgitation is present. There is no tricuspid stenosis. There is a trace amount of tricuspid regurgitation RVSP is 31 to 36 mm of Hg , with RA mean of 5 to10.Hence early mild pulmonary hypertension. There is no pulmonic valvular regurgitation. The aortic root is normal size. The inferior vena cava appeared normal and decreased > 50% with respiration (RAP 5-10 mmHg) There is no pericardial effusion. MMode/2D Measurements & Calculations RVDd: 2.7 cm LVIDd: 4.3 cm FS: 43.2 % Ao root diam: 2.9 cm IVSd: 0.88 cm LVIDs: 2.4 cm EDV(Teich): 80.9 ml Ao root area: 6.6 cm2 LVPWd: 1.2 cm ESV(Teich): 20.5 ml EF(Teich): 74.6 % Doppler Measurements & Calculations MV E max naomi: MV dec slope: Ao V2 max: LV V1 max P.2 cm/sec 628.0 cm/sec2 158.5 cm/sec 6.0 mmHg MV A max naomi: MV dec time: 0.16 sec Ao max PG: LV V1 max: 95.8 cm/sec 10.0 mmHg 122.2 cm/sec MV E/A: 1.0 PA V2 max: TR max naomi: 94.4 cm/sec 255.3 cm/sec PA max P.6 mmHgTR max P.1 mmHg Left Ventricle The left ventricle is normal in size. There is normal left ventricular wall thickness. LV EF is > than 65%. The left ventricular ejection fraction is within normal limits. Doppler measurements suggest normal left ventricular diastolic function. The left ventricular wall motion is normal. There is no thrombus. Right Ventricle The right ventricle is grossly normal size. The right ventricle is not well visualized secondary to technical limitations. Atria The right atrium is normal. The left atrial size is normal. Mitral Valve There is no evidence of mitral valve prolapse. There is no vegetation seen on the mitral valve. There is no mitral valve stenosis. There is a trace amount of mitral regurgitation. Aortic Valve There is no aortic valvular vegetation. There is no aortic valve stenosis. There is no LVOT obstruction. No aortic regurgitation is present. Tricuspid Valve There is no tricuspid stenosis. There is a trace amount of tricuspid regurgitation. RVSP is 31 to 36 mm of Hg , with RA mean of 5 to10.Hence early mild pulmonary hypertension. Pulmonic Valve There is no pulmonic valvular stenosis. There is no pulmonic valvular regurgitation. Great Vessels The aortic root is normal size. The inferior vena cava appeared normal and decreased > 50% with respiration (RAP 5-10 mmHg). Effusions There is no pericardial effusion. : SYLVIA CULLEN > Alina Milner
[2018-10-04] MEDS ORDERED: SIMVASTATIN 10 MG TABLET PO SCH (22:00)
[2018-10-04] MEDS: BUDESONIDE/FORMOTEROL 160-4.5 MCG 60 PUFF/6 GM MDI IH SCH (22:09)
[2018-10-05] MEDS: IPRATROPIUM BROMIDE 0.02% NEB 0.5 MG/2.5 ML AMPUL NEB SCH ×2 (00:32→08:24)
[2018-10-05] MEDS: LEVALBUTEROL HCL NEB 1.25 MG/3 ML AMPUL NEB SCH ×2 (00:32→08:24)
[2018-10-05] MEDS: MEROPENEM 1 GM in NORMAL SALINE 50 ML IV SCH ×2 (01:49→09:35)
[2018-10-05 05:19] LABS: ABSOLUTE EOSINOPHILS # (AUTO) 0.1 10^3/uL (0.0-0.6); ABSOLUTE LYMPHOCYTES (AUTO) 2.5 10^3/uL (0.5-4.7); ABSOLUTE MONOCYTES (AUTO) 0.4 10^3/uL (0.1-1.4); ABSOLUTE NEUT (AUTO) 4.5 10^3/uL (1.7-8.2); BASOPHILS % (AUTO) 0.6 % (0-2); EOSINOPHILS % (AUTO) 1.6 % (0-6); HEMATOCRIT 38.1 % (36.0-47.0); LYMPHOCYTES % (AUTO) 32.5 % (13-45); MEAN CORPUSCULAR HEMOGLOBIN 28.9 pg (27.0-33.4); MEAN CORPUSCULAR HGB CONC 34.2 g/dL (32.0-36.0); MEAN CORPUSCULAR VOLUME 85 fl (80-97); MONOCYTES % (AUTO) 5.7 % (3-13); PLATELET COUNT 166 10^3/uL (150-450); RED BLOOD COUNT 4.51 10^6/uL (3.72-5.28); RED CELL DISTRIBUTION WIDTH 15.8 % (11.5-14.0); SEGMENTED NEUTROPHILS % (AUTO) 59.6 % (42-78); TOTAL CELLS COUNTED % (AUTO) 100 %; WHITE BLOOD COUNT 7.6 10^3/uL (4.0-10.5)
[2018-10-05] MEDS: DILTIAZEM HCL 90 MG TABLET PO SCH (05:45)
[2018-10-05] MEDS: ACETAMINOPHEN 325 MG TABLET PO PRN (05:46)
[2018-10-05] MEDS: HEPARIN SOD (PORCINE) 5,000 UNIT/ML 1 ML SYRINGE SUBCUT SCH (05:46)
[2018-10-05 05:51] LABS: ALANINE AMINOTRANSFERASE 34 U/L (9-52); ALBUMIN 3.6 g/dL (3.5-5.0); ALKALINE PHOSPHATASE 127 U/L (38-126); ANION GAP 8 (5-19); ASPARTATE AMINO TRANSFERASE 15 U/L (14-36); BILIRUBIN,DIRECT 0.2 mg/dL (0.0-0.4); BILIRUBIN,TOTAL 0.3 mg/dL (0.2-1.3); BLOOD UREA NITROGEN 11 mg/dL (7-20); CALCIUM 9.3 mg/dL (8.4-10.2); CARBON DIOXIDE 27 mmol/L (22-30); CHLORIDE 107 mmol/L (98-107); GLUCOSE 206 mg/dL (75-110); POTASSIUM 3.8 mmol/L (3.6-5.0); SODIUM 142.2 mmol/L (137-145); TOTAL PROTEIN 6.2 g/dL (6.3-8.2)
[2018-10-05] MEDS: BUDESONIDE NEB 0.5 MG/2 ML AMPUL NEB SCH (08:24)
[2018-10-05] MEDS: FAMOTIDINE 20 MG TABLET PO SCH (09:24)
[2018-10-05] MEDS: INSULIN LISPRO 100 UNIT/ML 3 ML VIAL SUBCUT SCH (09:24)
[2018-10-05] MEDS: DOCUSATE SODIUM 100 MG CAPSULE PO SCH (09:24)
[2018-10-05] MEDS: SUCRALFATE SUSP 1 GM/10 ML UDCUP PO SCH (09:25)
[2018-10-05] MEDS: METOCLOPRAMIDE HCL 10 MG TABLET PO SCH (09:27)
[2018-10-05] MEDS: BUDESONIDE/FORMOTEROL 160-4.5 MCG 60 PUFF/6 GM MDI IH SCH (09:27)
[2018-10-05] MEDS ORDERED: MULTIVITAMIN TABLET PO SCH (10:00)
[2018-10-05] MEDS ORDERED: ASPIRIN 81 MG TABLET, ENT COATED PO SCH (10:00)
[2018-10-05] MEDS ORDERED: GABAPENTIN 300 MG CAPSULE PO SCH (10:00)
--- NOTE | 2018-10-05 10:48 | PDOC DISCHARGE SUMMARY ---
General - Admit/Disc Date/PCP Admission Date/Primary Care Provider: 10/02/18 20:51 CARROLL LIANG PA-C Discharge Date: 10/05/18 - Discharge Diagnosis (1) Right nephrolithiasis Is this a current diagnosis for this admission?: Yes Summary: Patient will be admitted for IV fluids and pain control. Should she develop fever or signs of sepsis or increasing obstruction she will be transferred to [facility] were the urologist service loss control consultant has already agreed to accept her directly and take her to surgery. 10/03/2018-patient was admitted with right-sided 4 mm stone in the right upper ureter. Presently she is on IV Ringer lactate, IV meropenem. She is also receiving IV pain medications. So far blood pressures are stable patient is afebrile. If she develops fever or signs of sepsis or increasing obstruction she will be transferred to [facility]. 10/05/2018-patient was admitted with a 4 mm stone in the right upper ureter. Started on IV fluids IV meropenem IV pain medications. Patient is afebrile during the hospital stay. White cell count is improved. Urine culture came back positive for E. coli sensitivity to ciprofloxacin. Patient is going home on ciprofloxacin 500 mg p.o. daily for 7 days. Nurses did not noticed any pa ssage of stone. Examination today there is no tenderness in the right costovertebral angle. Patient was strongly advised to follow-up with primary care physician in 3-5 days. (2) Pyelonephritis, acute Is this a current diagnosis for this admission?: Yes Summary: Patient be treated with broad-spectrum antibiotics while awaiting the urine culture and blood culture results. Pain will be managed utilizing a sliding dose morphine 3-7.5 mg IV every 2 hours as needed for pain. 10/03/2018-blood cultures and urine cultures are pending. Patient is on morphine sliding scale for pain management. Patient states pain is less compared to yesterday. 10/05/2018-patient was admitted with acute pyelonephritis with stone in the right upper ureter. Urine culture came back positive for E. coli patient is going home on ciprofloxacin 500 mg p.o. daily for 1 week. (3) Diabetes mellitus type 2 in obese Is this a current diagnosis for this admission?: Yes Summary: Patient will be maintained on her usual diabetic medications. Hemoglobin A1c will be obtained to evaluate efficacy of therapy and sliding scale insulin will be instituted before meals and at bedtime to cover hyperglycemia during her hospital stay. 10/03/2018 hemoglobin A1c came back 7.6. Patient on insulin sliding scale. Metformin is on hold. Dietary consult is going to be requested. Diet exercise lifestyle modifications are discussed with the patient. 10/05/2018-patient has history of type 2 diabetes mellitus hemoglobin A1c 7.6. She takes metformin at home which was on hold during the hospital stay. Patient was advised to resume metformin at home. (4) GERD (gastroesophageal reflux disease) Is this a current diagnosis for this admission?: Yes Summary: 10/03/2018-patient has history of gastric further reflux disease she was on famotidine sucralfate and Reglan. Plan is to continue the present management. 10/05/2018-patient has history of gastroparesis reflux disease, she is on famotidine, sucralfate, Reglan patient was advised to continue those medications at home. - Additional Information Resuscitation Status: Full Code Discharge Activity: Activity As Tolerated Prescriptions: Ciprofloxacin 500 mg PO DAILY #7 christopher..rec Diltiazem HCl [Cardizem 90 mg Tablet] 90 mg PO Q8 #90 tablet Home Medications: Aspirin [Adult Aspirin] 81 mg PO DAILY 10/03/18 Budesonide/Formoterol Fumarate [Symbicort HFA 160-4.5 mcg Inhaler 6 gm] 1 puff IH Q12 10/03/18 Gabapentin [Neurontin 300 mg Capsule] 300 mg PO DAILY 10/03/18 Metformin HCl 1,000 mg PO DAILY 10/03/18 Multivitamin [Daily Multiple Vitamin] 1 each PO DAILY 10/03/18 Ranitidine HCl [Zantac 150 mg Tablet] 150 mg PO BID 10/03/18 Simvastatin [Zocor 20 mg Tablet] 20 mg PO QHS 10/03/18 Ciprofloxacin 500 mg PO DAILY #7 [email or web address] 10/05/18 Diltiazem HCl [Cardizem 90 mg Tablet] 90 mg PO Q8 #90 tablet 10/05/18 History of Present Illness History of Present Illness: KAREEM RIOJAS is a 63 year old female 63 year old female who presented to the emergency room with extremely severe right flank pain of 4 hours duration. Patient admits that she began having some mild discomfort in her right flank on the evening prior to admission and this was still present on the morning of admission but she then suddenly developed increasing flank pain and over up course of about 4 hours it became unbearably s evere. The pain began in the right posterior costovertebral angle area and gradually expanded in the area around her right side down all the way into her right groin. She describes the pain is a severe cramping pressure of unbearable intensity. The pain is increased with any movement and the active trying to urinate. She has not identified any ameliorating factors for the pain. She denies prior similar symptoms. Pain is been associated with nausea and vomiting as well as subjective chills without fever. In the emergency room she was noted to be in severe discomfort and was found to have a 4 millimeter ureterolith in her right distal ureter. Urology at [facility] was contacted and agrees that they will take the patient immediately if she develops a fever, hypotension or any evidence of sepsis with the intention of taking the patient directly to the operating room and placing a stent. Otherwise urology recommends supportive care with IV fluids, antiemetics, antibiotics and pain management. Patient is thus admitted to the hospital for further evaluation and treatment. Physical Exam Vital Signs: Temp Pulse Resp BP Pulse Ox 97.7 F 82 16 145/72 H 96 10/05/18 07:26 10/05/18 08:24 10/05/18 08:24 10/05/18 07:26 10/05/18 08:24 Intake & Output 10/04/18 10/05/18 10/06/18 06:59 06:59 06:59 Intake Total 2456 3570 Output Total 9140 4250 Balance -4432 -680 Weight 90.7 kg 91.2 kg General appearance: PRESENT: no acute distress Head exam: PRESENT: atraumatic Eye exam: PRESENT: PERRLA Mouth exam: PRESENT: moist Neck exam: ABSENT: carotid bruit, JVD, lymphadenopathy, thyromegaly Respiratory exam: PRESENT: clear to auscultation charles. ABSENT: rales, rhonchi, wheezes Cardiovascular exam: PRESENT: RRR. ABSENT: diastolic murmur, rubs, systolic murmur GI/Abdominal exam: PRESENT: normal bowel sounds, soft, other - No costovertebral angle tenderness on the right side on palpation.. ABSENT: distended, guarding, mass, organolmegaly, rebound, tenderness Extremities exam: PRESENT: full ROM. ABSENT: calf tenderness, clubbing, pedal edema Neurological exam: PRESENT: alert, awake, oriented to person, oriented to place, oriented to time, oriented to situation, CN II-XII grossly intact. ABSENT: m otor sensory deficit Psychiatric exam: PRESENT: appropriate affect, normal mood. ABSENT: homicidal ideation, suicidal ideation Results Laboratory Results: 10/05/18 04:32 10/05/18 04:32 10/05/18 10/05/18 10/05/18 04:32 04:32 04:32 WBC 7.6 RBC 4.51 Hgb 13.0 Hct 38.1 MCV 85 MCH 28.9 MCHC 34.2 RDW 15.8 H Plt Count 166 Seg Neutrophils % 59.6 Lymphocytes % 32.5 Monocytes % 5.7 Eosinophils % 1.6 Basophils % 0.6 Absolute Neutrophils 4.5 Absolute Lymphocytes 2.5 Absolute Monocytes 0.4 Absolute Eosinophils 0.1 Absolute Basophils 0.0 Sodium 142.2 Potassium 3.8 Chloride 107 Carbon Dioxide 27 Anion Gap 8 BUN 11 Creatinine 0.67 Est GFR ( Amer) > 60 Est GFR (Non-Af Amer) > 60 Glucose 206 H Calcium 9.3 Magnesium 2.1 Total Bilirubin 0.3 AST 15 ALT 34 Alkaline Phosphatase 127 H Total Protein 6.2 L Albumin 3.6 10/02/18 15:25 Clean Catch Midstream Urine Culture - Final Escherichia Coli 10/04/18 10/04/18 10/04/18 03:54 03:54 11:06 Creatine Kinase 52 46 CK-MB (CK-2) 0.34 Troponin I < 0.012 10/04/18 10/04/18 10/04/18 11:06 15:40 15:40 Creatine Kinase 48 CK-MB (CK-2) 0.55 0.43 Troponin I < 0.012 < 0.012 Impressions: Abdomen/Pelvis CT 10/02/18 15:17 IMPRESSION: 4 mm calcified stone in the proximal right ureter with mild hydronephrosis-hydroureter. Qualifiers - * PATIENT BEING DISCHARGED WITH ANY OF THE FOLLOWING DIAGNOSIS: No VTE patient discharged on overlapping Therapy?: No
[2018-10-05 11:37] VITALS: BP 146/72
== END 2018-10-05 12:53 | disposition home or self-care (01) | DRG 690 ==
LOC: ER 14:20 → EH 20:51 → 4W 23:43
PROVIDERS: ADMIT Emergency Medicine; ATTEND Emergency Medicine
DX: N13.6 Pyonephrosis (principal); E11.9 Type 2 diabetes mellitus without complications; E66.9 Obesity, unspecified; B96.20 Unspecified Escherichia coli [E. coli] as the cause of diseases classified elsewhere; F17.200 Nicotine dependence, unspecified, uncomplicated; J44.9 Chronic obstructive pulmonary disease, unspecified; M16.0 Bilateral primary osteoarthritis of hip; M47.9 Spondylosis, unspecified; K21.0 Gastro-esophageal reflux disease with esophagitis; Z87.440 Personal history of urinary (tract) infections; Z79.84 Long term (current) use of oral hypoglycemic drugs; Z83.3 Family history of diabetes mellitus; Z23 Encounter for immunization; Z68.32 Body mass index [BMI] 32.0-32.9, adult
CPT/HCPCS: 36415; 74177; 80048; 80053; 81001; 82550; 82553; 82962; 83036; 83735; 84439; 84443; 84481; 84484; 85025; 87040; 87086; 87088; 87186; 90471; 90686; 93005; 93010; 93306; 94640; 96361; 96365; 96375; 99285; G0008; J0696; J1170; J1644; J1815; J1885; J2185; J2270; J2405; J3490; J7030; J7120

== ENCOUNTER → 2019-02-15 | Outpatient (CLI) | payer BC ==
--- NOTE | 2019-02-15 14:20 | RADIOLOGY REPORT (SQ) ---
EXAM DESCRIPTION: CT CHEST WITHOUT COMPLETED DATE/TIME: 02/15/2019 1:30 pm REASON FOR STUDY: OTHER NONSPECIFIC ABNORMAL FINDING OF LUNG FIELD (R91.8) R91.8 OTHER NONSPECIFIC ABNORMAL FINDING OF LUNG FIELD COMPARISON: CT chest 02/02/2017, 06/06/2015, 07/02/2015 TECHNIQUE: CT scan performed of the chest without intravenous contrast. Images reviewed with lung, soft tissue and bone windows. Reconstructed coronal and sagittal MPR images reviewed. All images st ored on PACS. All CT scanners at this facility use dose modulation, iterative reconstruction, and/or weight based d osing when appropriate to reduce radiation dose to as low as reasonably achievable (ALARA). [facility]: Dose Right [facility]: CareDose [facility]: Dose Right [facility]: Teradose 4D [facility]: Fingerprint RADIATION DOSE: CT Rad equipment meets quality standard of care and radiation dose reduction techniq ues were employed. CTDIvol: 12.6 mGy. DLP: 465 mGy-cm. mGy. LIMITATIONS: No technical limitations. FINDINGS: LUNGS AND PLEURA: Obstructive lung disease is present at both upper lobes. This is simila r compared to previous exams. On today's study, there is minimal airspace disease just above the left hemidiaphragm atelectasis jovan christopher pneumonia. No pleural effusions. No pneumothorax. Calcified granuloma posterior right lung base. HILAR AND MEDIASTINAL STRUCTURES: Old calcified granulomata along the right urvashi. Stable 7 mm short axis right paratracheal and prevascular lymph nodes. HEART AND VASCULAR STRUCTURES: No aneurysm. No pericardial effusion. Diffuse LAD calcification UPPER ABDOMEN: Fatty liver THYROID AND OTHER SOFT TISSUES: Diffuse thyromegaly with multiple nodules BONES: No significant finding. HARDWARE: None in the chest. OTHER: No other significant findings. IMPRESSION: Minimal left basilar airspace disease just above the hemidiaphragm on today's study. Obstructive lung disease. TECHNICAL DOCUMENTATION: JOB ID: [id number] Quality ID # [id number]: Final reports with documentation of one or more dose reduction techniques (e.g., Au tomated exposure control, adjustment of the mA and/or kV according to patient size, use of iterative reconstruction technique) 2010 [employer]- All Rights Reserved Reading location - IP/workstation name: [email or web address]
== END ==
LOC: RAD 13:16
PROVIDERS: ATTEND Internal Medicine Critical Care Medicine
DX: R91.8 Other nonspecific abnormal finding of lung field (principal); J84.9 Interstitial pulmonary disease, unspecified; J43.9 Emphysema, unspecified
CPT/HCPCS: 71250

== ENCOUNTER → 2019-05-23 | Outpatient (CLI) | payer BC ==
--- NOTE | 2019-05-23 13:09 | RADIOLOGY REPORT (SQ) ---
EXAM DESCRIPTION: CT CHEST WITHOUT COMPLETED DATE/TIME: 05/23/2019 10:38 am REASON FOR STUDY: TOBACCO USE/OTHER DISORDERS OF LUNG/INTERSTITIAL P Z72.0 TOBACCO USE J98.4 OTHER DISORDERS OF LUNG J84.9 INTERSTITIAL PULMONARY DISEASE, UNSPECIFIED COMPARISON: 02/15/2019 TECHNIQUE: CT scan performed of the chest without intravenous contrast. Images reviewed with lung, soft tissue and bone windows. Reconstructed coronal and sagittal MPR images reviewed. All images st ored on PACS. All CT scanners at this facility use dose modulation, iterative reconstruction, and/or weight based d osing when appropriate to reduce radiation dose to as low as reasonably achievable (ALARA). [facility]: Dose Right [facility]: CareDose [facility]: Dose Right [facility]: Teradose 4D [facility]: Smart Maxim Athletic RADIATION DOSE: CT Rad equipment meets quality standard of care and radiation dose reduction techniq ues were employed. CTDIvol: 12.6 mGy. DLP: 529 mGy-cm. mGy. LIMITATIONS: No technical limitations. FINDINGS: LUNGS AND PLEURA: Upper lobe centrilobular emphysema. No focal consolidation. No pleural effusion or pneumothorax. There is a left lower lobe nodule measuring 6 mm (series 4, image 86), st able compared to 2015. No new nodules or masses. Stable calcified right basilar granuloma. HILAR AND MEDIASTINAL STRUCTURES: Stable 7 mm short axis right paratracheal and prevascular lymph nod es. No discrete mediastinal adenopathy. Calcified hilar and mediastinal nodes compatible with prior granulomatous disease. HEART AND VASCULAR STRUCTURES: Normal heart size. No pericardial effusion. Scattered three-vessel c oronary atherosclerosis. UPPER ABDOMEN: No acute findings. Calcified splenic and hepatic granuloma. THYROID AND OTHER SOFT TISSUES: Partially evaluated heterogeneous thyroid with likely 2 cm left lobe hypodense nodule. Findings stable from prior. BONES: No significant finding. HARDWARE: None in the chest. OTHER: No other significant findings. IMPRESSION: 1. Mild emphysematous change without evidence of acute cardiopulmonary process. 2. Stable heterogeneous thyroid with likely 2 cm hypodense left thyroid lobe nodule. Consider ultra sound for further evaluation if not previously performed. 3. Additional chronic findings as above. TECHNICAL DOCUMENTATION: JOB ID: [id number] Quality ID # [id number]: Final reports with documentation of one or more dose reduction techniques (e.g., Au tomated exposure control, adjustment of the mA and/or kV according to patient size, use of iterative reconstruction technique) 2010 [employer]- All Rights Reserved Reading location - IP/workstation name: [email or web address]
== END ==
LOC: RAD 10:29
PROVIDERS: ATTEND Internal Medicine Critical Care Medicine
DX: J84.9 Interstitial pulmonary disease, unspecified (principal); J98.4 Other disorders of lung; Z72.0 Tobacco use
CPT/HCPCS: 71250

== ENCOUNTER 2019-10-15 13:29 | Emergency (ER) | payer BC ==
[2019-10-15] MEDS ORDERED: NORMAL SALINE 1000 ML 1,000 ML IV ONE (13:53)
[2019-10-15] MEDS ORDERED: ONDANSETRON HCL INJ/PF 4 MG/2 ML SDV IV ONE (13:53)
--- NOTE | 2019-10-15 13:55 | ER Document Report ---
ED Medical Screen (RME) - General Chief Complaint: Chest Congestion Stated Complaint: DIFFICULTY BREATHING/VOMITING/DIZZY Time Seen by Provider: 10/15/19 13:49 Primary Care Provider: KATALINA CURIEL MD [Primary Care Provider] - Follow up as needed Mode of Arrival: Wheelchair Information source: Patient Notes: 64-year-old female patient presenting to the emergency department chief complaint of cough, congestion, shortness of breath, vomiting and chills. Patient reports she cannot hold anything down, states that she has been having cold chills over the last few days. Patient is tachycardic on arrival with a heart rate of 128. She is a smoker. Lung sounds clear and equal bilaterally. Patient hyperventilating in triage. I have greeted and performed a rapid initial assessment of this patient. A comprehensive ED assessment and evaluation of the patient, analysis of test results and completion of the medical decision making process will be conducted by additional ED providers. I have specifically instructed the patient or family members with the patient to immediately return to any nursing staff should anything change in the patient's condition or with their chief complaint. TRAVEL OUTSIDE OF THE [place] IN LAST 30 DAYS: No - Related Data Allergies/Adverse Reactions: brompheniramine maleate [From [employer]] Allergy (Severe, Verified 10/15/19 13:46) Mood change "higher than kite" x 2 days dextromethorphan HBr [From [employer]] Allergy (Severe, Verified 10/15/19 13:46) Mood change "higher than kite" x 2 days phenylpropanolamine HCl [From [employer]] Allergy (Severe, Verified 10/15/19 13:46) Mood change "higher than kite" x 2 days pseudoephedrine HCl [From [employer]] Allergy (Severe, Verified 10/15/19 13:46) Mood change "higher than kite" x 2 days Past Medical History - Social History Chew tobacco use (# tins/day): No Frequency of alcohol use: None Drug Abuse: None - Past Medical History Cardiac Medical History: Denies: Hx Coronary Artery Disease, Hx Heart Attack, Hx Hypertension Pulmonary Medical History: Reports: Hx Asthma, Hx Bronchitis, Hx COPD - Recently dx Denies: Hx Pneumonia, Hx Respiratory Failure, Hx Tuberculosis Neurological Medical History: Denies: Hx Cerebrovascular Accident, Hx Seizures Endocrine Medical History: Reports: Hx Diabetes Mellitus Type 2. Denies: Hx Hyperthyroidism, Hx Hypothyroidism Renal/ Medical History: Denies: Hx Peritoneal Dialysis GI Medical History: Reports: Hx Gastroesophageal Reflux Disease, Hx Ulcer - Currently prepyloric ulcer on endoscopy 3 years ago. Denies: Hx Cirrhosis, Hx Crohn's Disease, Hx Hepatitis, Hx Ulcerative Colitis Musculoskeltal Medical History: Reports Hx Arthritis - Hips, lower back, Denies Hx Gout Skin Medical History: Denies Hx Eczema, Denies Hx Psoriasis Infectious Medical History: Denies: Hx Hepatitis Past Surgical History: Reports: Hx Appendectomy, Hx Pituitary Surgery - Pituitary adenoma removed in 2009, Hx Tonsillectomy, Hx Tubal Ligation, Other - Excision of benign pituitary tumor - Immunizations Hx Diphtheria, Pertussis, Tetanus Vaccination: Yes Physical Exam - Vital signs Vitals: Temp Pulse Resp BP Pulse Ox 98 F 128 H 16 132/62 H 94 10/15/19 13:46 10/15/19 13:46 10/15/19 13:46 10/15/19 13:46 10/15/19 13:46 Course - Vital Signs Vital signs: Temp Pulse Resp BP Pulse Ox 98 F 128 H 16 132/62 H 94 10/15/19 13:46 10/15/19 13:46 10/15/19 13:46 10/15/19 13:46 10/15/19 13:46 Doctor's Discharge - Discharge Referrals: KATALINA CURIEL MD [Primary Care Provider] - Follow up as needed
--- NOTE | 2019-10-15 14:32 | RADIOLOGY REPORT (SQ) ---
EXAM DESCRIPTION: CHEST 2 VIEWS COMPLETED DATE/TIME: 10/15/2019 1:08 pm REASON FOR STUDY: cough/chills COMPARISON: None. EXAM PARAMETERS: NUMBER OF VIEWS: two views TECHNIQUE: Digital Frontal and Lateral radiographic views of the chest acquired. RADIATION DOSE: NA LIMITATIONS: none FINDINGS: LUNGS AND PLEURA: Lungs are hyperinflated. No focal consolidation or pleural effusion. N o pneumothorax. MEDIASTINUM AND HILAR STRUCTURES: No masses or contour abnormalities. HEART AND VASCULAR STRUCTURES: Heart normal size. No evidence for failure. BONES: No acute findings. HARDWARE: None in the chest. OTHER: No other significant finding. IMPRESSION: No acute cardiopulmonary disease. Hyperinflated lungs which can be seen with obstructiv e lung disease. TECHNICAL DOCUMENTATION: JOB ID: [id number] 2010 [employer]- All Rights Reserved Reading location - IP/workstation name: [email or web address]
[2019-10-15 15:16] LABS: VENOUS BLOOD BASE EXCESS 0.8 mmol/L; VENOUS BLOOD HCO3 26.3 mmol/L (20-32); VENOUS BLOOD PCO2 44.9 mmHg (35-63); VENOUS BLOOD PH 7.39 (7.30-7.42)
[2019-10-15 15:22] LABS: HEMATOCRIT 38.3 % (36.0-47.0); HEMOGLOBIN 13.4 g/dL (12.0-15.5); MEAN CORPUSCULAR HEMOGLOBIN 29.5 pg (27.0-33.4); MEAN CORPUSCULAR VOLUME 84 fl (80-97); PLATELET COUNT 180 10^3/uL (150-450); RED BLOOD COUNT 4.55 10^6/uL (3.72-5.28); RED CELL DISTRIBUTION WIDTH 15.4 % (11.5-14.0); WHITE BLOOD COUNT 10.9 10^3/uL (4.0-10.5)
[2019-10-15 15:37] LABS: ALBUMIN 3.7 g/dL (3.5-5.0); ALKALINE PHOSPHATASE 184 U/L (38-126); ANION GAP 11 (5-19); ASPARTATE AMINO TRANSFERASE 59 U/L (14-36); BILIRUBIN,DIRECT 0.4 mg/dL (0.0-0.4); BILIRUBIN,TOTAL 0.5 mg/dL (0.2-1.3); BLOOD UREA NITROGEN 31 mg/dL (7-20); CALCIUM 9.7 mg/dL (8.4-10.2); CARBON DIOXIDE 26 mmol/L (22-30); CHLORIDE 97 mmol/L (98-107); GLUCOSE 186 mg/dL (75-110); POTASSIUM 3.8 mmol/L (3.6-5.0)
[2019-10-15 15:54] LABS: ABSOLUTE LYMPHOCYTES# (MANUAL) 0.5 10^3/uL (0.5-4.7); ABSOLUTE MONOCYTES # (MANUAL) 0.3 10^3/uL (0.1-1.4); BAND NEUTROPHILS % (MANUAL) 1 % (3-5); BASOPHILS % (MANUAL) 0 % (0-2); EOSINOPHILS % (MANUAL) 0 % (0-6); LYMPHOCYTES % (MANUAL) 5 % (13-45); MONOCYTES % (MANUAL) 3 % (3-13); SEGMENTED NEUTROPHILS % (MAN) 91 % (42-78); TOTAL CELLS COUNTED 100
[2019-10-15 15:55] LABS: ANISOCYTOSIS SLIGHT; PLATELET CLUMPS PRESENT; PLATELET COMMENT ADEQUATE; POLYCHROMASIA SLIGHT
[2019-10-15] MEDS ORDERED: ALBUTEROL SULFATE 0.083% NEB 2.5 MG/3 ML AMPUL NEB ONE (17:09)
[2019-10-15] MEDS ORDERED: RINGERS SOLUTION,LACTATED 1,000 ML IV ONE ×2 (17:09→20:36)
--- NOTE | 2019-10-15 17:26 | ER Document Report ---
ED General - General Chief Complaint: Chest Congestion Stated Complaint: DIFFICULTY BREATHING/VOMITING/DIZZY Time Seen by Provider: 10/15/19 13:49 Primary Care Provider: KATALINA CURIEL MD [COMMUNITY BASED STAFF] - Follow up as needed Mode of Arrival: Wheelchair Notes: 64-year-old female presents emergency department complaining of feeling terrible for the past few weeks. States that she has been having sinus and lung congestion for the past few weeks with occasional productive cough. Patient states sometimes that she has a nonproductive cough that leads to dry heaves and sometimes she has isolated dry heaves. Also complains of significant chest pain and back pain with inspiration. States that on Thursday she saw her urologist for follow-up appointment and requested to be checked for UTI due to left flank pain and burning with urination. States on Thursday she was called and told that she had a UTI. States she started an unknown antibiotic on as well as Flomax. States that since then she has been having chills and Reiger's, states that she has also been having sweats but is unchanged from baseline since menopause. Denies any true fevers at home. Denies any diarrhea. Admits frontal headache that improves with ibuprofen and Tylenol for the past 2 days. Denies any neck pain. TRAVEL OUTSIDE OF THE [place] IN LAST 30 DAYS: No - Related Data Allergies/Adverse Reactions: brompheniramine maleate [From [employer]et[employer]] Allergy (Severe, Verified 10/15/19 13:46) Mood change "higher than kite" x 2 days dextromethorphan HBr [From [employer]] Allergy (Severe, Verified 10/15/19 13:46) Mood change "higher than kite" x 2 days phenylpropanolamine HCl [From [employer]] Allergy (Severe, Verified 10/15/19 13:4 6) Mood change "higher than kite" x 2 days pseudoephedrine HCl [From [employer]et[employer]] Allergy (Severe, Verified 10/15/19 13:46) Mood change "higher than kite" x 2 days Past Medical History - General Information source: Patient - Social History Smoking Status: Current Every Day Smoker Chew tobacco use (# tins/day): No Frequency of alcohol use: None Drug Abuse: None Family History: CAD, DM Patient has suicidal ideation: No Patient has homicidal ideation: No - Past Medical History Cardiac Medical History: Denies: Hx Coronary Artery Disease, Hx Heart Attack, Hx Hypertension Pulmonary Medical History: Reports: Hx Asthma, Hx Bronchitis, Hx COPD - Recently dx Denies: Hx Pneumonia, Hx Respiratory Failure, Hx Tuberculosis Neurological Medical History: Denies: Hx Cerebrovascular Accident, Hx Seizures Endocrine Medical History: Reports: Hx Diabetes Mellitus Type 2. Denies: Hx Hyperthyroidism, Hx Hypothyroidism Renal/ Medical History: Denies: Hx Peritoneal Dialysis GI Medical History: Reports: Hx Gastroesophageal Reflux Disease, Hx Ulcer - Currently prepyloric ulcer on endoscopy 3 years ago. Denies: Hx Cirrhosis, Hx Crohn's Disease, Hx Hepatitis, Hx Ulcerative Colitis Musculoskeletal Medical History: Reports Hx Arthritis - Hips, lower back, Denies Hx Gout Skin Medical History: Denies Hx Eczema, Denies Hx Psoriasis Infectious Medical History: Denies: Hx Hepatitis Past Surgical History: Reports: Hx Appendectomy, Hx Pituitary Surgery - Pituitary adenoma removed in 2009, Hx Tonsillectomy, Hx Tubal Ligation, Other - Excision of benign pituitary tumor - Immunizations Hx Diphtheria, Pertussis, Tetanus Vaccination: Yes Review of Systems - Review of Systems Constitutional: See HPI, Chills, Diaphoresis. denies: Fever EENT: No symptoms reported Cardiovascular: See HPI, Chest pain, Dyspnea Respiratory: See HPI, Cough, Hurts to breathe, Short of breath Gastrointestinal: See HPI, Nausea, Vomiting. denies: Abdominal pain, Diarrhea Genitourinary: See HPI, Burning, Flank pain Musculoskeletal: See HPI, Back pain Neurological/Psychological: Headaches -: Yes All other systems reviewed and negative Physical Exam - Vital signs Vitals: Temp Pulse Resp BP Pulse Ox 98 F 128 H 16 132/62 H 94 10/15/19 13:46 10/15/19 13:46 10/15/19 13:46 10/15/19 13:46 10/15/19 13:46 Interpretation: Tachycardic - Notes Notes: GENERAL: Alert, interacts well. Ill-appearing, appears quite uncomfortable. HEAD: Normocephalic, atraumatic EYES: Pupils equal, round and reactive to light, extraocular movements intact. ENT: Oral mucosa moist, tongue midline. NECK: Full range of motion, supple, trachea midline. LUNGS: Trace expiratory wheezing, crackles in the right lower lobe, appears short of breath simply with sitting up in bed, on 2 L via nasal cannula is 92%, when I turn this off and she talks to me she drops to 88% while laying in the bed and talking. HEART: Tachycardic rate and rhythm, no murmurs, gallops, rubs. ABDOMEN: Soft, nontender, nondistended, bowel sounds present in all 4 quadrants. EXTREMITIES: Moves all 4 extremities spontaneously, no edema, radial and dorsalis pedis pulses 2/4 bilaterally. No cyanosis. NEUROLOGICAL: Alert and oriented x3, normal speech, no facial droop. PSYCH: Normal mood, normal affect. SKIN: Warm, Dry, normal turgor. Course - Re-evaluation Re-evalutation: 10/15/19 20:48 CBC shows mild leukocytosis at 10.9, no anemia, venous blood gas unremarkable, CMP does show acute renal failure with a BUN of 31 and a creatinine of 1.93, patient has been hydrated with 3 L of crystalloids, lactic acid elevated at 2.7, troponin is come back elevated at 0.451, EKG has very minimal ST segment depressions in lead II, no true ischemic changes. Patient's chest pain is very atypical, only present with deep breath or coughing. Discussed patient with Dr. Valencia who has seen her in the past for atrial fibrillation. Agrees that this is quite atypical and is likely due to demand mismatch. Feels comfortable from a cardiac standpoint keeping the patient at this hospital. 10/15/19 20:[address] Perdue who requests a repeat troponin prior to accepting the patient for admission. This is a reasonable request, it has been put in with a repeat lactic acid ordered as well. I will call this result to him and then we will discuss again. 10/15/19 22:27 Troponin is more than doubled, this is a significant increase, discussed with Dr. Perdue to Dr. Valencia, at this point we all agree it would be more prudent to transfer her to a tertiary cardiac center. Patient request [facility] as she has been seen there before. 10/15/19 23:[address] Huddleston from [facility], agrees to admit the patient to his service, requests statin be given, patient is also given an aspirin. Patient cannot stay at this facility because even if her creatinine normalizes we do not have the availability of heart cath until Thursday. - Vital Signs Vital signs: Temp Pulse Resp BP Pulse Ox 98.4 F 128 H 24 H 101/67 93 10/15/19 21:04 10/15/19 13:46 10/15/19 23:01 10/15/19 23:01 10/15/19 23:01 - Laboratory Result Diagrams: 10/15/19 14:52 10/15/19 14:52 Laboratory results interpreted by me: 10/15/19 10/15/19 10/15/19 14:52 14:52 14:52 WBC 10.9 H RDW 15.4 H Seg Neuts % (Manual) 91 H Band Neutrophils % 1 L Lymphocytes % (Manual) 5 L Abs Neuts (Manual) 10.0 H Sodium 133.7 L Chloride 97 L BUN 31 H Creatinine 1.93 H Est GFR ( Amer) 32 L Est GFR (MDRD) Non-Af 26 L Glucose 186 H Lactic Acid 2.7 H AST 59 H ALT 47 H Alkaline Phosphatase 184 H NT-Pro-B Natriuret Pep Lipase Urine Protein Urine Blood Ur Leukocyte Esterase 10/15/19 10/15/19 10/15/19 14:52 14:52 19:20 WBC RDW Seg Neuts % (Manual) Band Neutrophils % Lymphocytes % (Manual) Abs Neuts (Manual) Sodium Chloride BUN Creatinine Est GFR ( Amer) Est GFR (MDRD) Non-Af Glucose Lactic Acid AST ALT Alkaline Phosphatase NT-Pro-B Natriuret Pep 514 H Lipase 555.9 H Urine Protein 100 H Urine Blood MODERATE H Ur Leukocyte Esterase SMALL H - EKG Interpretation by Me Additional EKG results interpreted by me: 10/15/19 17:20 EKG shows sinus tachycardia at a rate of 124, normal axis, normal intervals, is olated ST segment elevation in V2, no ST segment depressions, no reciprocal changes, does not meet STEMI criteria, isolated intermittent T wave inversions in aVL per my interpretation. 10/15/19 23:18 Repeat EKG shows sinus tachycardia at a rate of 100, normal axis, normal intervals, no ST segment elevations or depressions, no T wave inversions per my interpretation. Critical Care Note - Critical Care Note Total time excluding time spent on procedures (mins): 41 Discharge - Discharge Clinical Impression: Non-STEMI (non-ST elevated myocardial infarction) Right middle lobe pneumonia Qualifiers: Pneumonia type: due to unspecified organism Qualified Code(s): J18.9 - Pneumonia, unspecified organism Acute renal failure Qualifiers: Acute renal failure type: unspecified Qualified Code(s): N17.9 - Acute kidney failure, unspecified Condition: Fair Disposition: [facility] Referrals: KATALINA CURIEL MD [COMMUNITY BASED STAFF] - Follow up as needed
[2019-10-15 17:57] LABS: A TYPE INFLUENZA AG NEGATIVE (NEGATIVE); B INFLUENZA AG NEGATIVE (NEGATIVE)
[2019-10-15 18:28] LABS: CREATINE KINASE MB 0.59 ng/mL (<4.55)
[2019-10-15 18:36] LABS: TROPONIN I 0.451 ng/mL
[2019-10-15] MEDS ORDERED: NITROGLYCERIN 0.4 MG/TAB 25 TAB/BOTTLE SL PRN (19:31)
[2019-10-15 19:52] LABS: APPEARANCE,URINE CLEAR; BILIRUBIN,URINE NEGATIVE (NEGATIVE); COLOR,URINE YELLOW; GLUCOSE, URINE NEGATIVE (NEGATIVE); KETONES,URINE NEGATIVE (NEGATIVE); LEUKOCYTE ESTERASE,URINE SMALL (NEGATIVE); NITRITE,URINE NEGATIVE (NEGATIVE); PROTEIN,URINE 100 mg/dL (NEGATIVE); UROBILINOGEN,URINE NEGATIVE mg/dL (<2.0)
--- NOTE | 2019-10-15 20:04 | RADIOLOGY REPORT (SQ) ---
EXAM DESCRIPTION: CTA CHEST COMPLETED DATE/TIME: 10/15/2019 6:33 pm REASON FOR STUDY: hypoxia, chest pain, r/o PE. Nausea, vomiting, cough. History of renal disease, G FR of 26 today. Radiologist was made aware of ER provider request for IV contrast. COMPARISON: CT chest, 05/23/2019. Chest radiograph same date. TECHNIQUE: CT scan of the chest performed using helical scanning technique with dynamic intravenous contrast injection. Images reviewed with lung, soft tissue and bone windows. Reconstructed coronal and sagittal MPR images reviewed. Additional 3 dimensional post-processing performed to develop Maximal Intensity Projection images ([place] P). All images stored on PACS. All CT scanners at this facility use dose modulation, iterative reconstruction, and/or weight based d osing when appropriate to reduce radiation dose to as low as reasonably achievable (ALARA). [facility]: Dose Right [facility]: CareDose [facility]: Dose Right [facility]: Teradose 4D [facility]: [employer] CONTRAST TYPE AND DOSE: contrast/concentration: Isovue 300.00 mg/ml; Total Contrast Delivered: 80.0 ml; Total Saline Delivered: 60.0 ml Contrast bolus optimized for the pulmonary arteries. Not diagnostic for the aorta. RENAL FUNCTION: Creatinine 1.9 today. RADIATION DOSE: CT Rad equipment meets quality standard of care and radiation dose reduction techniq ues were employed. CTDIvol: 22.6 - 26.4 mGy. DLP: 828 mGy-cm. . LIMITATIONS: None. FINDINGS: LUNGS AND PLEURA: The trachea has normal caliber and appearance. Background moderate pulm onary emphysema. There is tree-in-bud nodularity and ground-glass attenuation in the right middle lo be consistent with focal pneumonia. No pleural effusion or pneumothorax. Calcified granuloma in the right lower lobe. AORTA AND GREAT VESSELS: No aneurysm. Contrast bolus not optimized for the aorta. HEART: No pericardial effusion. There is coronary artery atherosclerosis. PULMONARY ARTERIES: No emboli visualized in the main pulmonary arteries or the segmental branches. HILAR AND MEDIASTINAL STRUCTURES: No mediastinal mass. Prominent mediastinal lymph nodes in the aort ic pulmonary window are stable from previous examination. No new adenopathy. . Calcified right hil ar and mediastinal lymph nodes consistent with healed granulomatous disease. HARDWARE: None in the chest. UPPER ABDOMEN: No significant findings. Limited exam. THYROID AND OTHER SOFT TISSUES: Enlarged heterogeneous thyroid gland without focal nodularity. BONES: No acute or significant finding. 3D MIPS: Confirm above findings. OTHER: No other significant finding. IMPRESSION: 1. No pulmonary embolism. 2. Focal area of tree-in-bud type nodularity and ground-glass attenuation in the right middle lobe is suspicious for acute infectious process such as pneumonia. Given the more nodular configuration, a follow-up CT of the chest in 6 months is recommended to confirm complete resolution. 3. Coronary artery atherosclerosis. 4. Background moderate pulmonary emphysema. 5. Enlarged heterogeneous appearance of the thyroid gland. Clinical correlation with thyroid functio n studies is recommended. Thyroid ultrasound may provide additional information as clinically indica inge. COMMENT: Quality ID # 436: Final reports with documentation of one or more dose reduction techniques (e.g., Automated exposure control, adjustment of the mA and/or kV according to patient size, use of iterative reconstruction technique) TECHNICAL DOCUMENTATION: JOB ID: [id number] 2010 [employer]- All Rights Reserved Reading location - IP/workstation name: [email or web address]
[2019-10-15] MEDS ORDERED: CEFTRIAXONE 1 GM/D5W RTU 1 GM/50 ML RTUPB IV ONE (20:36)
[2019-10-15] MEDS ORDERED: ENOXAPARIN SODIUM INJ 100 MG/1 ML DISP.SYRIN SUBCUT ONE (21:50)
--- NOTE | 2019-10-15 21:55 | EKG REPORT ---
SEVERITY:- OTHERWISE NORMAL ECG - SINUS TACHYCARDIA : Confirmed by: Anna Valencia 15-Oct-2019 21:55:17
[2019-10-15] MEDS ORDERED: ASPIRIN 325 MG TABLET PO ONE (23:08)
[2019-10-15] MEDS ORDERED: ATORVASTATIN CALCIUM 40 MG TABLET PO ONE (23:08)
[2019-10-15] MEDS ORDERED: AZITHROMYCIN INJ 500 MG VIAL IV ONE (23:09)
[2019-10-16 00:42] VITALS: BP 121/84
--- NOTE | 2019-10-16 11:52 | EKG REPORT ---
SEVERITY:- OTHERWISE NORMAL ECG - SINUS TACHYCARDIA : Confirmed by: Anna Valencia 16-Oct-2019 11:52:22
== END 2019-10-16 00:47 | disposition short-term general hospital (02) ==
LOC: ER 13:29
DX: I21.4 Non-ST elevation (NSTEMI) myocardial infarction (principal); J18.9 Pneumonia, unspecified organism; N17.9 Acute kidney failure, unspecified; N39.0 Urinary tract infection, site not specified; J44.9 Chronic obstructive pulmonary disease, unspecified; E11.9 Type 2 diabetes mellitus without complications; R07.1 Chest pain on breathing; R05 Cough; R68.83 Chills (without fever); R61 Generalized hyperhidrosis; R51 Headache; R00.0 Tachycardia, unspecified; R11.2 Nausea with vomiting, unspecified; F17.200 Nicotine dependence, unspecified, uncomplicated; Z88.8 Allergy status to other drugs, medicaments and biological substances
CPT/HCPCS: 93005; 94640; 99285; 96372; 96361; 96375; 96365; 96367; 36415; 87040; 87086; 82553; 82550; 83605; 83690; 85025; 80053; 81001; 84484; 82803; 87804; 83880; 71046; 71275; 93010; J2405; J7030; J7120; J0456; J1650; J0696

== ENCOUNTER → 2020-03-30 | Outpatient (CLI) | payer BC ==
--- NOTE | 2020-03-30 09:57 | RADIOLOGY REPORT (SQ) ---
EXAM DESCRIPTION: U/S RETROPERITON (RENAL/AORTA) IMAGES COMPLETED DATE/TIME: 03/30/2020 9:42 am REASON FOR STUDY: CKD III (N18.3) N18.3 CHRONIC KIDNEY DISEASE, STAGE 3 (MODERATE) COMPARISON: CT abdomen dated 10/02/2018 TECHNIQUE: Dynamic and static grayscale images acquired of the kidneys and bladder and recorded on P ACS. Additional selected color Doppler and spectral images recorded. LIMITATIONS: None. FINDINGS: RIGHT KIDNEY: The right kidney measures 13.4 cm in length. Normal echogenicity. No so lid or suspicious masses. Mild prominence of the renal pelvis this may represent extrarenal pelvis. No calyx dilatation. No calcifications. LEFT KIDNEY: The left kidney measures 11.9 cm in length. Normal echogenicity. No solid or suspic ious masses. No hydronephrosis. Small nonobstructing renal calculi as demonstrated. This measure s approximately 5 mm in greatest diameter. BLADDER: No masses. OTHER FINDINGS: No other significant finding. IMPRESSION: 5 mm nonobstructing left renal stone. Mild prominence of the right renal pelvis most li barbra extrarenal pelvis. TECHNICAL DOCUMENTATION: JOB ID: [id number] 2010 [employer]- All Rights Reserved Reading location - IP/workstation name: [email or web address]
== END ==
LOC: RAD 09:13
PROVIDERS: ATTEND Physician Assistant Medical
DX: N18.3 Chronic kidney disease, stage 3 (moderate) (principal); N20.0 Calculus of kidney
CPT/HCPCS: 76770

== ENCOUNTER → 2020-06-05 | Outpatient (CLI) | payer BC ==
--- NOTE | 2020-06-05 13:29 | RADIOLOGY REPORT (SQ) ---
EXAM DESCRIPTION: CT CHEST WITHOUT IMAGES COMPLETED DATE/TIME: 06/05/2020 10:14 am REASON FOR STUDY: J43.9 EMPHYSEMA, UNSPECIFIED R91.1 SOLITARY PULMONARY NODULE J43.9 EMPHYSEMA, UN SPECIFIED COMPARISON: 11/29/2019 TECHNIQUE: CT scan performed of the chest without intravenous contrast. Images reviewed with lung, soft tissue and bone windows. Reconstructed coronal and sagittal MPR images reviewed. All images st ored on PACS. All CT scanners at this facility use dose modulation, iterative reconstruction, and/or weight based d osing when appropriate to reduce radiation dose to as low as reasonably achievable (ALARA). [facility]: Dose Right [facility]: CareDose [facility]: Dose Right [facility]: Teradose 4D [facility]: [employer] RADIATION DOSE: CT Rad equipment meets quality standard of care and radiation dose reduction techniq ues were employed. CTDIvol: 16.1 mGy. DLP: 628 mGy-cm. mGy. LIMITATIONS: No technical limitations. FINDINGS: LUNGS AND PLEURA: Centrilobular emphysema in the apices. 12.9 mm ground-glass nodule in t he left lower lobe posteriorly on image 59. This is slightly larger than on the prior study. HILAR AND MEDIASTINAL STRUCTURES: There are several stable mediastinal nodes. There are calcified ri ght hilar nodes. HEART AND VASCULAR STRUCTURES: No aneurysm. No pericardial effusion. UPPER ABDOMEN: Spleen size is borderline. THYROID AND OTHER SOFT TISSUES: Bilateral thyroid nodules. These appear relatively stable, consider thyroid ultrasound. BONES: No significant finding. HARDWARE: None in the chest. OTHER: No other significant findings. IMPRESSION: 1. 12.9 mm ground-glass nodule in the left lower lobe posteriorly. This is larger. 2. Centrilobular emphysematous changes. 3. Stable mediastinal nodes. 4. Bilateral thyroid nodules. Recommend thyroid ultrasound. 5. Borderline spleen size. COMMENT: Fleischner Criteria for Ground Glass Nodules: >6-8 mm part solid single nodule: CT 3-6 mo to confirm persistence, if unchanged solid component perla ins < [address] should be performed for 5 yrs. TECHNICAL DOCUMENTATION: JOB ID: [id number] Quality ID # [id number]: Final reports with documentation of one or more dose reduction techniques (e.g., Au tomated exposure control, adjustment of the mA and/or kV according to patient size, use of iterative reconstruction technique) 2010 [employer]- All Rights Reserved Reading location - IP/workstation name: [email or web address]
== END ==
LOC: RAD 10:11
PROVIDERS: ATTEND Internal Medicine Critical Care Medicine
DX: J43.9 Emphysema, unspecified (principal); R91.1 Solitary pulmonary nodule; J98.4 Other disorders of lung; J84.9 Interstitial pulmonary disease, unspecified; R09.02 Hypoxemia; J45.40 Moderate persistent asthma, uncomplicated; J40 Bronchitis, not specified as acute or chronic; Z72.0 Tobacco use; C44.90 Unspecified malignant neoplasm of skin, unspecified; R06.00 Dyspnea, unspecified; Z87.01 Personal history of pneumonia (recurrent); G47.34 Idiopathic sleep related nonobstructive alveolar hypoventilation
CPT/HCPCS: 71250

== ENCOUNTER → 2020-09-14 | Outpatient (CLI) | payer BC ==
--- NOTE | 2020-09-14 12:35 | RADIOLOGY REPORT (SQ) ---
EXAM DESCRIPTION: CT CHEST WITHOUT IMAGES COMPLETED DATE/TIME: 09/14/2020 10:30 am REASON FOR STUDY: PULMONARY NODULE R91.1 SOLITARY PULMONARY NODULE R91.8 OTHER NONSPECIFIC ABNORMA L FINDING OF LUNG FIELD J84.9 INTERSTITIAL PULMONARY DISEASE, UNSPECIFIED COMPARISON: 06/05/2020 TECHNIQUE: CT scan performed of the chest without intravenous contrast. Images reviewed with lung, soft tissue and bone windows. Reconstructed coronal and sagittal MPR images reviewed. All images st ored on PACS. All CT scanners at this facility use dose modulation, iterative reconstruction, and/or weight based d osing when appropriate to reduce radiation dose to as low as reasonably achievable (ALARA). [facility]: Dose Right [facility]: CareDose [facility]: Dose Right [facility]: Teradose 4D [facility]: [employer] RADIATION DOSE: CT Rad equipment meets quality standard of care and radiation dose reduction techniq ues were employed. CTDIvol: 14.5 mGy. DLP: 570 mGy-cm. mGy. LIMITATIONS: No technical limitations. FINDINGS: LUNGS AND PLEURA: Centrilobular emphysema. Ground-glass nodule seen posteriorly in the le ft lower lobe on image 58 is larger, measuring 14 mm. There is a stable 4 mm nodule in the right mid dle lobe laterally. HILAR AND MEDIASTINAL STRUCTURES: There are some calcified mediastinal and hilar nodes. There are so me noncalcified nodes. The largest measures 14.7 mm in short axis. HEART AND VASCULAR STRUCTURES: No aneurysm. No pericardial effusion. UPPER ABDOMEN: Splenomegaly. The splenic index is 962. THYROID AND OTHER SOFT TISSUES: Thyroid gland is prominent. BONES: No significant finding. HARDWARE: None in the chest. OTHER: No other significant findings. IMPRESSION: 1. There is a sub solid nodule in the left lower lobe posteriorly there has increased i n size to 14 mm. Consider PET-CT 2. Centrilobular emphysema. Stable 4 mm nodule in the right middle lobe. 3. Mild mediastinal adenopathy. There are some calcified mediastinal and hilar nodes. 4. The thyroid gland is prominent. COMMENT: None. TECHNICAL DOCUMENTATION: JOB ID: [id number] Quality ID # [id number]: Final reports with documentation of one or more dose reduction techniques (e.g., Au tomated exposure control, adjustment of the mA and/or kV according to patient size, use of iterative reconstruction technique) 2010 [employer]- All Rights Reserved Reading location - IP/workstation name: [email or web address]
== END ==
LOC: RAD 10:05
PROVIDERS: ATTEND Internal Medicine Critical Care Medicine
DX: R91.1 Solitary pulmonary nodule (principal); J43.2 Centrilobular emphysema; R91.8 Other nonspecific abnormal finding of lung field; J84.9 Interstitial pulmonary disease, unspecified; R06.00 Dyspnea, unspecified; J98.4 Other disorders of lung; C44.90 Unspecified malignant neoplasm of skin, unspecified; G47.34 Idiopathic sleep related nonobstructive alveolar hypoventilation; G47.33 Obstructive sleep apnea (adult) (pediatric); J30.9 Allergic rhinitis, unspecified
CPT/HCPCS: 71250